=== PATIENT | male | born 1945 | race Hispanic/Latino ===

== ENCOUNTER → 2019-07-29 | Outpatient (CLI) | payer OTHER ==
[~2019-07-29] MED LIST: AEC81 PO; ATOR20TA65 PO; ERGO500014 PO; GLIM2TAB30 PO; LISI-617 PO; MECL-183 PO; PIOG15TA66 PO; REGADENOSON 0.4 MG/5 ML PF SYG IVP SCH; ROPI0.257 PO; TAMS-1 PO
== END | disposition home or self-care (01) ==
LOC: RAH 08:33
PROVIDERS: ATTEND Internal Medicine Cardiovascular Disease
DX: R94.39 Abnormal result of other cardiovascular function study (principal); I10 Essential (primary) hypertension; E11.9 Type 2 diabetes mellitus without complications; I25.9 Chronic ischemic heart disease, unspecified; R06.02 Shortness of breath; E78.5 Hyperlipidemia, unspecified; Z95.5 Presence of coronary angioplasty implant and graft
CPT/HCPCS: 78452; 93017; 96374; A9500 ×2; J2785

== ENCOUNTER → 2020-04-07 | Outpatient (CLI) | payer OTHER ==
[~2020-04-07] MED LIST changes: -MECL-183 PO; +MECL-184 PO; -REGADENOSON 0.4 MG/5 ML PF SYG IVP SCH
== END | disposition home or self-care (01) ==
LOC: SHCH 15:50
PROVIDERS: ATTEND Internal Medicine Cardiovascular Disease
DX: M79.606 Pain in leg, unspecified (principal)
CPT/HCPCS: 93922

== ENCOUNTER 2020-09-16 16:34 | Emergency (ER) | payer MEDICARE, OTHER ==
[~2020-09-16 16:34] MED LIST changes: -LISI-617 PO; +LISI-809 PO; -MECL-184 PO; +MECL-226 PO
== END 2020-09-16 19:56 | disposition home or self-care (01) ==
LOC: EDH 16:34
DX: T14.8XXA Other injury of unspecified body region, initial encounter (principal); M54.6 Pain in thoracic spine; E11.9 Type 2 diabetes mellitus without complications; I10 Essential (primary) hypertension; X58.XXXA Exposure to other specified factors, initial encounter; Y93.89 Activity, other specified; Y92.89 Other specified places as the place of occurrence of the external cause; Y99.8 Other external cause status
CPT/HCPCS: 74176

== ENCOUNTER 2022-08-26 16:23 | Emergency (ER) | payer MEDICARE ==
[~2022-08-26] VITALS: Ht 165.1 cm; Wt 68.0 kg
[~2022-08-26 16:23] MED LIST changes: -ERGO500014 PO; +ERGO500093 PO; -LISI-809 PO; +LISI5TAB21 PO
[2022-08-26 16:56] LABS: BASOPHILS % (AUTO) 0.4 % (0.0-5.0); EOSINOPHILS % (AUTO) 2.3 % (0.0-8.0); HEMATOCRIT 37.5 % (42-54); LYMPHOCYTES % (AUTO) 13.9 % (21.0-51.0); MEAN CORPUSCULAR HEMOGLOBIN 31.2 pg (27.0-33.0); MEAN CORPUSCULAR HGB CONC 33.9 g/dL (32.0-36.0); MEAN CORPUSCULAR VOLUME 92.1 fL (79-99); NEUTROPHILS % (AUTO) 75.1 % (40.0-77.0); PLATELET COUNT (AUTO) 172 K/uL (130-400); RED BLOOD CELL COUNT(AUTO) 4.07 MIL/uL (4.50-6.20); RED CELL DISTRIBUTION WIDTH 14.1 % (11.0-15.5); WHITE BLOOD COUNT (AUTO) 7.1 K/uL (4.8-10.8)
[2022-08-26 17:03] LABS: CREATININE 1.3 mg/dL (0.5-1.5); POTASSIUM 4.4 mmol/L (3.5-5.1)
[2022-08-26 17:12] LABS: TOTAL PROTEIN, SERUM 7.7 g/dL (6.0-8.3)
[2022-08-26 18:46] VITALS: BP 131/56
[2022-08-26 20:27] LABS: APPEARANCE,URINE CLOUDY (CLEAR); BILIRUBIN,URINE NEGATIVE (NEGATIVE); COLOR,URINE LIGHT-YELLOW (YELLOW); GLUCOSE, URINE (UA) NEGATIVE (NEGATIVE); KETONES,URINE NEGATIVE (NEGATIVE); LEUKOCYTE ESTERASE ,URINE 500 Leu/uL (NEGATIVE); NITRATE,URINE NEGATIVE (NEGATIVE); PH,URINE 5.5 (5.0-8.0); PROTEIN,URINE 20 mg/dL (NEGATIVE); UROBILINOGEN,URINE 0.2 mg/dL (0.2-1.0)
[2022-08-26 20:39] LABS: BACTERIA,URINE RARE /HPF (None Seen); MUCUS,URINE RARE LPF (None Seen); SQUAMOUS EPITHELIAL CELL,UR RARE /HPF (0-2); WBC,URINE TNTC /HPF (0-1)
[2022-08-26] MEDS ORDERED: SULF1TAB42 PO (20:57)
== END 2022-08-26 21:00 | disposition home or self-care (01) ==
LOC: EDH 16:23
DX: N39.0 Urinary tract infection, site not specified (principal); I10 Essential (primary) hypertension; E11.9 Type 2 diabetes mellitus without complications; E78.00 Pure hypercholesterolemia, unspecified; Z79.82 Long term (current) use of aspirin; Z79.84 Long term (current) use of oral hypoglycemic drugs; Z79.899 Other long term (current) drug therapy; Z95.5 Presence of coronary angioplasty implant and graft
CPT/HCPCS: 36415; 80053; 81001; 83498; 84484; 85025; 87077; 87088; 87186; 93005

== ENCOUNTER → 2022-10-27 | Outpatient (CLI) | payer MEDICARE ==
[~2022-10-27] VITALS: Ht 165.1 cm; Wt 62.1 kg
[~2022-10-27] MED LIST changes: +MEMA10TA55 PO; +OXYB10TA30 PO; +ROSU10TA28 PO; +SULF1TAB42 PO
[2022-10-27 10:12] LABS: BASOPHILS % (AUTO) 0.3 % (0.0-5.0); EOSINOPHILS % (AUTO) 2.9 % (0.0-8.0); HEMATOCRIT 36.6 % (42-54); LYMPHOCYTES % (AUTO) 20.8 % (21.0-51.0); MEAN CORPUSCULAR HEMOGLOBIN 30.8 pg (27.0-33.0); MEAN CORPUSCULAR HGB CONC 33.1 g/dL (32.0-36.0); MEAN CORPUSCULAR VOLUME 93.1 fL (79-99); MONOCYTES % (AUTO) 7.6 % (3.0-13.0); NEUTROPHILS % (AUTO) 67.9 % (40.0-77.0); PLATELET COUNT (AUTO) 172 K/uL (130-400); RED BLOOD CELL COUNT(AUTO) 3.93 MIL/uL (4.50-6.20); RED CELL DISTRIBUTION WIDTH 13.8 % (11.0-15.5); WHITE BLOOD COUNT (AUTO) 5.8 K/uL (4.8-10.8)
[2022-10-27 10:27] LABS: CREATININE 1.3 mg/dL (0.5-1.5); INR 1.05 (0.85-1.15); POTASSIUM 5.5 mmol/L (3.5-5.1); PROTHROMBIN TIME 11.4 SEC (9.6-11.6)
[2022-10-27 10:28] VITALS: BP 145/76
== END | disposition home or self-care (01) ==
LOC: DAH 10:00 → EDSTATUS 11-23 08:00
PROVIDERS: ATTEND Urology
DX: U07.1 COVID-19 (principal); Z01.818 Encounter for other preprocedural examination; N40.1 Benign prostatic hyperplasia with lower urinary tract symptoms; I21.09 ST elevation (STEMI) myocardial infarction involving other coronary artery of anterior wall; I70.0 Atherosclerosis of aorta; I51.7 Cardiomegaly; R00.1 Bradycardia, unspecified; M47.815 Spondylosis without myelopathy or radiculopathy, thoracolumbar region
CPT/HCPCS: 71045; 87426; 80048; 85025; 85610; 85730; 87088; 36415; 93005; A6260

== ENCOUNTER → 2022-11-21 | Outpatient (CLI) | payer MEDICARE ==
[~2022-11-21] MED LIST changes: -AEC81 PO; -ATOR20TA65 PO; -ERGO500093 PO; -GLIM2TAB30 PO; -LISI5TAB21 PO; -MECL-226 PO; -ROPI0.257 PO; -SULF1TAB42 PO
[2022-11-21 12:47] LABS: BASOPHILS # (AUTO) 0.04 K/uL (0.00-0.20); BASOPHILS % (AUTO) 0.6 % (0.0-5.0); EOSINOPHILS # (AUTO) 0.21 K/uL (0.00-0.70); EOSINOPHILS % (AUTO) 3.3 % (0.0-8.0); HEMATOCRIT 37.1 % (42-54); IMMATURE GRANULOCYTE ABSOLUTE 0.03 K/uL (0-1); LYMPHOCYTES # (AUTO) 1.3 K/uL (1.0-4.8); LYMPHOCYTES % (AUTO) 20.2 % (21.0-51.0); MEAN CORPUSCULAR HEMOGLOBIN 31.1 pg (27.0-33.0); MEAN CORPUSCULAR HGB CONC 33.4 g/dL (32.0-36.0); MONOCYTES # (AUTO) 0.5 K/uL (0.1-1.0); MONOCYTES % (AUTO) 7.3 % (3.0-13.0); NEUTROPHILS # (AUTO) 4.4 K/uL (1.8-7.7); NEUTROPHILS % (AUTO) 68.1 % (40.0-77.0); PLATELET COUNT (AUTO) 185 K/uL (130-400); RED BLOOD CELL COUNT(AUTO) 3.99 MIL/uL (4.50-6.20); RED CELL DISTRIBUTION WIDTH 14.3 % (11.0-15.5); WHITE BLOOD COUNT (AUTO) 6.4 K/uL (4.8-10.8)
[2022-11-21 13:05] LABS: ALBUMIN 3.7 g/dL (3.5-5.0); BILIRUBIN,TOTAL 0.4 mg/dL (0.2-1.0); CREATININE 1.2 mg/dL (0.5-1.5); POTASSIUM 4.8 mmol/L (3.5-5.1)
== END | disposition home or self-care (01) ==
LOC: LAB 08:22
PROVIDERS: ATTEND Internal Medicine Cardiovascular Disease
DX: I10 Essential (primary) hypertension (principal); E78.00 Pure hypercholesterolemia, unspecified
CPT/HCPCS: 36415; 80053; 80061; 85025; 87426

== ENCOUNTER 2022-11-23 06:24 | Day surgery (SDC) | payer MEDICARE ==
[2022-11-17 11:33] LABS: BASOPHILS % (AUTO) 0.5 % (0.0-5.0); EOSINOPHILS % (AUTO) 2.8 % (0.0-8.0); HEMATOCRIT 36.4 % (42-54); LYMPHOCYTES % (AUTO) 20.8 % (21.0-51.0); MEAN CORPUSCULAR HEMOGLOBIN 31.3 pg (27.0-33.0); MEAN CORPUSCULAR HGB CONC 33.8 g/dL (32.0-36.0); MEAN CORPUSCULAR VOLUME 92.6 fL (79-99); MONOCYTES % (AUTO) 7.1 % (3.0-13.0); NEUTROPHILS % (AUTO) 68.3 % (40.0-77.0); PLATELET COUNT (AUTO) 179 K/uL (130-400); RED BLOOD CELL COUNT(AUTO) 3.93 MIL/uL (4.50-6.20); WHITE BLOOD COUNT (AUTO) 6.2 K/uL (4.8-10.8)
[2022-11-17 11:43] LABS: APPEARANCE,URINE CLEAR (CLEAR); BILIRUBIN,URINE NEGATIVE (NEGATIVE); COLOR,URINE YELLOW (YELLOW); GLUCOSE, URINE (UA) NEGATIVE (NEGATIVE); KETONES,URINE NEGATIVE (NEGATIVE); LEUKOCYTE ESTERASE ,URINE NEGATIVE Leu/uL (NEGATIVE); NITRATE,URINE NEGATIVE (NEGATIVE); OCCULT BLOOD,URINE NEGATIVE (NEGATIVE); PH,URINE 5.5 (5.0-8.0); PROTEIN,URINE 30 mg/dL (NEGATIVE); UROBILINOGEN,URINE 0.2 mg/dL (0.2-1.0)
[2022-11-17 11:49] LABS: CREATININE 1.3 mg/dL (0.5-1.5); POTASSIUM 5.3 mmol/L (3.5-5.1)
[2022-11-17 11:52] LABS: PROTHROMBIN TIME 11.6 SEC (9.6-11.6)
[2022-11-17 11:53] LABS: PARTIAL THROMBOPLASTIN TIME 27.4 SEC (26.3-35.5)
[2022-11-17 12:38] LABS: MUCUS,URINE RARE LPF (None Seen); OTHER CASTS, URINE 3 /LPF (None Seen); SQUAMOUS EPITHELIAL CELL,UR RARE /HPF (0-2)
[2022-11-17 20:43] VITALS: BP 111/51; PULSE 48
[~2022-11-23] VITALS: Ht 165.1 cm; Wt 62.1 kg
[2022-11-23] VITALS (18 sets, daily range): BP systolic 138–182; BP diastolic 54–83; PULSE 38–60; RESP 13–19
[~2022-11-23 06:24] MED LIST changes: -PIOG15TA66 PO
[2022-11-23] MEDS ORDERED: GENTAMICIN 80 MG/NS 100 ML PB 100 ML IV ONE (09:11)
[2022-11-23] MEDS ORDERED: CEFTRIAXONE 1G VIAL ONE (09:11)
[2022-11-23] MEDS ORDERED: 0.9%NACL 1000ML 1,000 ML IV ONE (09:11)
[2022-11-23] MEDS ORDERED: GLYCOPYRROLATE 0.2 MG/ML 5 ML VIAL ONE ×2 (09:44→13:17)
[2022-11-23] MEDS ORDERED: MIDAZOLAM HCL 1 MG/ML 2ML VIAL ONE (10:16)
[2022-11-23] MEDS ORDERED: ONDANSETRON 4MG INJ ONE (10:16)
[2022-11-23] MEDS ORDERED: FENTANYL CITRATE PF 50 MCG/1 ML 2ML VIAL ONE ×2 (10:17→11:40)
[2022-11-23] MEDS ORDERED: PROPOFOL 10 MG/ML 20ML VIAL IV ONE (10:17)
[2022-11-23] MEDS ORDERED: NEOSTIGMINE 5MG/5ML SYR IV ONE (11:38)
[2022-11-23] MEDS ORDERED: PIOG15TA66 PO (11:46)
[2022-11-23] MEDS ORDERED: SUGAMMADEX SODIUM 200 MG/2 ML VIAL IV ONE (11:48)
[2022-11-23] MEDS ORDERED: MEPERIDINE-PF 25 MG/ML SYG ONE (12:28)
[2022-11-23] MEDS ORDERED: BACITRACIN 1 EACH PACKET TP ONE (13:31)
[2022-11-23] MEDS ORDERED: HYDROCODONE/ACETAMINOPHEN 5/325 MG TAB ONE (13:47)
== END 2022-11-23 13:50 | disposition home or self-care (01) ==
LOC: DAH 06:24
PROVIDERS: ATTEND Urology
DX: N40.1 Benign prostatic hyperplasia with lower urinary tract symptoms (principal); Z20.822 Contact with and (suspected) exposure to COVID-19; N32.89 Other specified disorders of bladder; I10 Essential (primary) hypertension; E11.59 Type 2 diabetes mellitus with other circulatory complications; G30.9 Alzheimer's disease, unspecified; E78.2 Mixed hyperlipidemia; F02.80 Dementia in other diseases classified elsewhere, unspecified severity, without behavioral disturbance, psychotic disturbance, mood disturbance, and anxiety; K21.9 Gastro-esophageal reflux disease without esophagitis; Z79.01 Long term (current) use of anticoagulants; Z79.899 Other long term (current) drug therapy; Z95.5 Presence of coronary angioplasty implant and graft; Z90.49 Acquired absence of other specified parts of digestive tract; Z98.890 Other specified postprocedural states; Z72.89 Other problems related to lifestyle
CPT/HCPCS: 80048; 85025; 85610; 85730; 87088; 87426; 81001; 36415; 71045; 93005; 52648; 82948; A6260; A4663; J7120; A4354; J3010 ×2; J2710; J7030; J0696; J2250; J2704; J2405; J3490 ×2; J2175; J1580; A4358 ×2; A4930; A4215; A4223; A4335; A4222; A4221; A4600; A5113

== ENCOUNTER 2022-12-01 20:10 | Emergency (ER) | payer MEDICARE ==
[~2022-12-01] VITALS: Ht 165.1 cm; Wt 60.8 kg
[~2022-12-01 20:10] MED LIST changes: +PIOG15TA66 PO; -ROSU10TA28 PO
[2022-12-01 21:53] VITALS: BP 126/56; PULSE 51; RESP 18; O2SAT 99
== END 2022-12-01 22:01 | disposition home or self-care (01) ==
LOC: EDH 20:10
DX: T83.018A Breakdown (mechanical) of other urinary catheter, initial encounter (principal); E11.9 Type 2 diabetes mellitus without complications; E78.00 Pure hypercholesterolemia, unspecified; I10 Essential (primary) hypertension; Z79.84 Long term (current) use of oral hypoglycemic drugs; Z95.5 Presence of coronary angioplasty implant and graft; Y65.8 Other specified misadventures during surgical and medical care; Y92.89 Other specified places as the place of occurrence of the external cause
CPT/HCPCS: 51701; 99281

== ENCOUNTER 2023-01-02 12:38 | Observation (INO) | payer MEDICARE ==
[~2023-01-02] VITALS: Ht 165.1 cm; Wt 62.6 kg
[2023-01-02 16:04] LABS: BASOPHILS # (AUTO) 0.05 K/uL (0.00-0.20); BASOPHILS % (AUTO) 0.6 % (0.0-5.0); EOSINOPHILS # (AUTO) 0.24 K/uL (0.00-0.70); EOSINOPHILS % (AUTO) 3.1 % (0.0-8.0); HEMATOCRIT 36.6 % (42-54); IMMATURE GRANULOCYTE ABSOLUTE 0.06 K/uL (0-1); LYMPHOCYTES # (AUTO) 1.5 K/uL (1.0-4.8); LYMPHOCYTES % (AUTO) 19.4 % (21.0-51.0); MEAN CORPUSCULAR HEMOGLOBIN 30.8 pg (27.0-33.0); MEAN CORPUSCULAR HGB CONC 33.9 g/dL (32.0-36.0); MEAN CORPUSCULAR VOLUME 90.8 fL (79-99); MONOCYTES # (AUTO) 0.6 K/uL (0.1-1.0); MONOCYTES % (AUTO) 7.1 % (3.0-13.0); NEUTROPHILS # (AUTO) 5.3 K/uL (1.8-7.7); PLATELET COUNT (AUTO) 227 K/uL (130-400); RED BLOOD CELL COUNT(AUTO) 4.03 MIL/uL (4.50-6.20); RED CELL DISTRIBUTION WIDTH 14.1 % (11.0-15.5); WHITE BLOOD COUNT (AUTO) 7.7 K/uL (4.8-10.8)
[2023-01-02 16:12] LABS: CREATININE 1.5 mg/dL (0.5-1.5); POTASSIUM 4.4 mmol/L (3.5-5.1)
[2023-01-02 16:17] LABS: ALBUMIN 3.8 g/dL (3.5-5.0); BILIRUBIN,TOTAL 0.4 mg/dL (0.2-1.0); TOTAL PROTEIN, SERUM 7.7 g/dL (6.0-8.3)
[2023-01-02] MEDS ORDERED: KETOROLAC 15MG/ML VIAL (15MG/ML) IV ONE (18:30)
[2023-01-02 19:47] LABS: APPEARANCE,URINE CLOUDY (CLEAR); BILIRUBIN,URINE NEGATIVE (NEGATIVE); COLOR,URINE YELLOW (YELLOW); GLUCOSE, URINE (UA) NEGATIVE (NEGATIVE); KETONES,URINE NEGATIVE (NEGATIVE); LEUKOCYTE ESTERASE ,URINE 500 Leu/uL (NEGATIVE); NITRATE,URINE NEGATIVE (NEGATIVE); OCCULT BLOOD,URINE MODERATE (NEGATIVE); PROTEIN,URINE 70 mg/dL (NEGATIVE); UROBILINOGEN,URINE 0.2 mg/dL (0.2-1.0)
[2023-01-02 20:16] LABS: ADD UA MICROSCOPIC YES
[2023-01-02 20:31] LABS: BACTERIA,URINE RARE /HPF (None Seen); MUCUS,URINE RARE LPF (None Seen); SQUAMOUS EPITHELIAL CELL,UR RARE /HPF (0-2); WBC,URINE TNTC /HPF (0-1)
[2023-01-02] MEDS ORDERED: ACETAMINOPHEN 650 MG SUPPOSITORY RC PRN (21:00)
[2023-01-02] MEDS ORDERED: ACETAMINOPHEN 325 MG TAB PO PRN (21:00)
[2023-01-02] MEDS: INSULIN HUMULIN R 100 UNIT/ML 3ML SQ SCH (21:00)
[2023-01-02] MEDS: DOCUSATE SODIUM 100 MG CAP PO SCH (21:49)
[2023-01-02] MEDS: 0.9%NACL 1000ML 1,000 ML IV SCH (21:49)
[2023-01-02] MEDS: LACTULOSE 20 GM/30 ML UDCUP PO SCH (21:49)
[2023-01-03] MEDS: LACTULOSE 20 GM/30 ML UDCUP PO SCH ×2 (03:20→08:34)
[2023-01-03 06:24] LABS: CREATININE 1.5 mg/dL (0.5-1.5); MAGNESIUM 1.8 mg/dL (1.80-2.40); PHOSPHORUS 3.7 mg/dL (2.5-4.9); POTASSIUM 4.6 mmol/L (3.5-5.1)
[2023-01-03 06:48] VITALS: BP 174/77; PULSE 50; RESP 17; O2SAT 99
[2023-01-03] MEDS: INSULIN HUMULIN R 100 UNIT/ML 3ML SQ SCH ×2 (07:30→11:30)
[2023-01-03] MEDS: 0.9%NACL 1000ML 1,000 ML IV SCH (08:03)
[2023-01-03] MEDS: DOCUSATE SODIUM 100 MG CAP PO SCH (08:34)
[2023-01-03] MEDS ORDERED: ENOXAPARIN SODIUM 30 MG/0.3 ML SQ SCH (09:00)
[2023-01-03] MEDS ORDERED: OXYBUTYNIN 5 MG TAB.SR.24H PO SCH (09:00)
[2023-01-03] MEDS ORDERED: POLYETHYLENE GLYCOL 3350 17 GM POWD.PACK PO SCH (09:00)
[2023-01-03] MEDS ORDERED: MEMANTINE HCL PO SCH (09:00)
[2023-01-03] MEDS ORDERED: OXYBUTYNIN CHLORIDE PO SCH (09:00)
[2023-01-03] MEDS ORDERED: PANTOPRAZOLE 40 MG TAB DR PO SCH (09:00)
[2023-01-03] MEDS ORDERED: PIOGLITAZONE 15MG TAB PO SCH (09:00)
[2023-01-03] MEDS ORDERED: TAMSULOSIN HCL 0.4 MG CAP.ER.24H PO SCH (09:00)
[2023-01-03] MEDS ORDERED: CEFTRIAXONE 1G VIAL IV SCH (09:00)
[2023-01-03] MEDS ORDERED: MEMANTINE HCL 5 MG TABLET PO SCH (09:00)
[2023-01-03] MEDS ORDERED: AMOX-426 PO (13:41)
[2023-01-03] MEDS ORDERED: POLY17PO4 PO (13:41)
== END 2023-01-03 14:11 | disposition home or self-care (01) ==
LOC: EDH 12:38 → EDHIP 20:45
PROVIDERS: ADMIT Internal Medicine Critical Care Medicine; ATTEND Internal Medicine Critical Care Medicine
DX: K59.00 Constipation, unspecified (principal); N30.00 Acute cystitis without hematuria; D64.9 Anemia, unspecified; N17.9 Acute kidney failure, unspecified; E87.8 Other disorders of electrolyte and fluid balance, not elsewhere classified; I10 Essential (primary) hypertension; E11.9 Type 2 diabetes mellitus without complications; E78.00 Pure hypercholesterolemia, unspecified; N40.0 Benign prostatic hyperplasia without lower urinary tract symptoms; Z90.79 Acquired absence of other genital organ(s); Z95.5 Presence of coronary angioplasty implant and graft; Z95.1 Presence of aortocoronary bypass graft; Z79.899 Other long term (current) drug therapy; Z98.890 Other specified postprocedural states
CPT/HCPCS: 96361 ×2; 96375; 99285; 80053; 83690; 85025; 87088; 82948; 81001; 36415 ×2; 74021; 71045; 93005; 96372; 96365; 83735; 84100; 80048; 74018; G0378 ×17; J7030; J1885; J1650; J0696

== ENCOUNTER 2023-06-27 21:14 | Observation (INO) | payer MEDICARE ==
[~2023-06-27] VITALS: Ht 165.1 cm; Wt 62.8 kg
[2023-06-27 21:45] LABS: BASOPHILS # (AUTO) 0.03 K/uL (0.00-0.20); BASOPHILS % (AUTO) 0.5 % (0.0-5.0); EOSINOPHILS # (AUTO) 0.28 K/uL (0.00-0.70); EOSINOPHILS % (AUTO) 4.3 % (0.0-8.0); HEMATOCRIT 38.2 % (42-54); IMMATURE GRANULOCYTE ABSOLUTE 0.06 K/uL (0-1); LYMPHOCYTES # (AUTO) 1.6 K/uL (1.0-4.8); LYMPHOCYTES % (AUTO) 25.5 % (21.0-51.0); MEAN CORPUSCULAR HEMOGLOBIN 30.6 pg (27.0-33.0); MEAN CORPUSCULAR HGB CONC 34.8 g/dL (32.0-36.0); MONOCYTES # (AUTO) 0.6 K/uL (0.1-1.0); MONOCYTES % (AUTO) 8.9 % (3.0-13.0); NEUTROPHILS # (AUTO) 3.9 K/uL (1.8-7.7); NEUTROPHILS % (AUTO) 59.9 % (40.0-77.0); PLATELET COUNT (AUTO) 190 K/uL (130-400); RED BLOOD CELL COUNT(AUTO) 4.34 MIL/uL (4.50-6.20); RED CELL DISTRIBUTION WIDTH 13.8 % (11.0-15.5); WHITE BLOOD COUNT (AUTO) 6.4 K/uL (4.8-10.8)
[2023-06-27 21:55] LABS: CREATININE 1.5 mg/dL (0.5-1.5); POTASSIUM 3.9 mmol/L (3.5-5.1)
[2023-06-27 21:57] LABS: INR 0.94 (0.85-1.15); PROTHROMBIN TIME 10.9 SEC (9.6-11.6)
[2023-06-27 22:00] LABS: ALBUMIN 3.7 g/dL (3.5-5.0); BILIRUBIN,TOTAL 0.3 mg/dL (0.2-1.0); TOTAL PROTEIN, SERUM 7.2 g/dL (6.0-8.3)
[2023-06-27] MEDS ORDERED: NITROGLYCERIN 0.4 MG SL TAB SL PRN (22:00)
[2023-06-27 23:02] LABS: APPEARANCE,URINE CLEAR (CLEAR); BILIRUBIN,URINE NEGATIVE (NEGATIVE); COLOR,URINE LIGHT-YELLOW (YELLOW); GLUCOSE, URINE (UA) TRACE mg/dL (NEGATIVE); KETONES,URINE NEGATIVE (NEGATIVE); LEUKOCYTE ESTERASE ,URINE NEGATIVE Leu/uL (NEGATIVE); NITRATE,URINE NEGATIVE (NEGATIVE); OCCULT BLOOD,URINE NEGATIVE (NEGATIVE); PH,URINE 5.5 (5.0-8.0); PROTEIN,URINE 70 mg/dL (NEGATIVE); UROBILINOGEN,URINE 0.2 mg/dL (0.2-1.0)
[2023-06-27] MEDS: ASPIRIN 81MG CHEW TAB PO ONE (23:08)
[2023-06-27 23:11] LABS: ADD UA MICROSCOPIC YES
[2023-06-27 23:21] LABS: MUCUS,URINE RARE LPF (None Seen); RBC,URINE 0-1 /HPF (0-1); SQUAMOUS EPITHELIAL CELL,UR RARE /HPF (0-2)
[2023-06-28] MEDS ORDERED: HYDRALAZINE 20MG/ML VIAL IV PRN (02:00)
[2023-06-28] MEDS ORDERED: ALBUTEROL 0.083% 2.5 MG/3 ML INH IH PRN (02:00)
[2023-06-28] MEDS ORDERED: IPRATROPIUM 0.5 MG/2.5 ML INH IH PRN (02:00)
[2023-06-28] MEDS ORDERED: ACETAMINOPHEN 650 MG SUPPOSITORY RC PRN (02:00)
[2023-06-28] MEDS ORDERED: TEMAZEPAM 15 MG CAPSULE PO PRN (02:00)
[2023-06-28] MEDS ORDERED: LACTULOSE 20 GM/30 ML UDCUP PO PRN (02:00)
[2023-06-28] MEDS ORDERED: DOCUSATE SODIUM 100 MG CAP PO PRN (02:00)
[2023-06-28] MEDS ORDERED: ACETAMINOPHEN 325 MG TAB PO PRN (02:00)
[2023-06-28] MEDS ORDERED: ONDANSETRON 4MG INJ IVP PRN (02:00)
[2023-06-28 02:25] VITALS: PULSE 51; RESP 18; O2SAT 98
[2023-06-28 02:28] LABS: BASOPHILS # (AUTO) 0.05 K/uL (0.00-0.20); BASOPHILS % (AUTO) 0.8 % (0.0-5.0); EOSINOPHILS # (AUTO) 0.27 K/uL (0.00-0.70); EOSINOPHILS % (AUTO) 4.1 % (0.0-8.0); HEMATOCRIT 35.9 % (42-54); IMMATURE GRANULOCYTE ABSOLUTE 0.06 K/uL (0-1); LYMPHOCYTES # (AUTO) 1.7 K/uL (1.0-4.8); LYMPHOCYTES % (AUTO) 26.1 % (21.0-51.0); MEAN CORPUSCULAR HEMOGLOBIN 30.9 pg (27.0-33.0); MEAN CORPUSCULAR HGB CONC 34.8 g/dL (32.0-36.0); MEAN CORPUSCULAR VOLUME 88.9 fL (79-99); MONOCYTES # (AUTO) 0.5 K/uL (0.1-1.0); MONOCYTES % (AUTO) 7.2 % (3.0-13.0); NEUTROPHILS % (AUTO) 60.9 % (40.0-77.0); PLATELET COUNT (AUTO) 165 K/uL (130-400); RED BLOOD CELL COUNT(AUTO) 4.04 MIL/uL (4.50-6.20); WHITE BLOOD COUNT (AUTO) 6.5 K/uL (4.8-10.8)
[2023-06-28 02:35] LABS: ABG BASE EXCESS -3.1 mmol/L (-2.0-3.0); ABG HCO3 19.8 mmol/L (21.0-28.0); ABG OXYGEN SATURATION 97.9 % (95.0-99.0); ABG PCO2 30 mmHg (35-48); ABG PH 7.434 (7.35-7.450); PO2, ARTERIAL BG 101.4 mmHg (83.0-108.0); VENT MODE, BG ROOMAIR (ROOM AIR)
[2023-06-28 02:40] VITALS: BP 163/72; PULSE 57; RESP 17; O2SAT 98
[2023-06-28 02:55] LABS: CREATININE 1.3 mg/dL (0.5-1.5); POTASSIUM 4.1 mmol/L (3.5-5.1)
[2023-06-28 07:50] VITALS: BP 148/73; PULSE 52; RESP 17
[2023-06-28 08:00] VITALS: O2SAT 99
[2023-06-28] MEDS: ASPIRIN 81MG CHEW TAB PO SCH (09:36)
[2023-06-28 11:24] VITALS: BP 115/54; PULSE 60; RESP 18
[2023-06-28 15:23] VITALS: BP 139/70; PULSE 61; RESP 16
[2023-06-28] MEDS ORDERED: PANT40TA55 PO (15:25)
[2023-06-28] MEDS ORDERED: ATORVASTATIN 40 MG TABLET PO SCH (21:00)
== END 2023-06-28 17:15 | disposition home or self-care (01) ==
LOC: EDH 21:14 → EDHIP 06-28 01:42 → 3BH 06-28 02:19
PROVIDERS: ADMIT Internal Medicine Critical Care Medicine; ATTEND Internal Medicine Critical Care Medicine
DX: R07.9 Chest pain, unspecified (principal); K21.9 Gastro-esophageal reflux disease without esophagitis; I10 Essential (primary) hypertension; E78.5 Hyperlipidemia, unspecified; E11.65 Type 2 diabetes mellitus with hyperglycemia; N40.0 Benign prostatic hyperplasia without lower urinary tract symptoms; R06.02 Shortness of breath; E78.00 Pure hypercholesterolemia, unspecified; I25.10 Atherosclerotic heart disease of native coronary artery without angina pectoris; Z90.49 Acquired absence of other specified parts of digestive tract; Z95.5 Presence of coronary angioplasty implant and graft; Z79.82 Long term (current) use of aspirin; Z79.899 Other long term (current) drug therapy; Z90.79 Acquired absence of other genital organ(s)
CPT/HCPCS: 84484 ×4; 80053; 83880; 85025 ×2; 85378 ×2; 85610; 87088; 81001; 36415 ×2; 71045; 93005; 99285; 80048; 82803; 87040 ×2; 82948 ×3; 93306; 36600; G0378 ×14

== ENCOUNTER → 2024-01-22 | Outpatient (CLI) | payer MEDICARE ==
[~2024-01-22] MED LIST changes: +MEMA10TA21 PO; -MEMA10TA55 PO; +PANT40TA55 PO
[2024-01-22 12:40] LABS: ALBUMIN 3.6 g/dL (3.5-5.0); BILIRUBIN,TOTAL 0.6 mg/dL (0.2-1.0); CREATININE 1.3 mg/dL (0.5-1.3); POTASSIUM 4.2 mmol/L (3.5-5.1); TOTAL PROTEIN, SERUM 6.8 g/dL (6.0-8.3)
== END | disposition home or self-care (01) ==
LOC: LAB 01-21 13:49
PROVIDERS: ATTEND Internal Medicine Cardiovascular Disease
DX: E11.9 Type 2 diabetes mellitus without complications (principal); R07.9 Chest pain, unspecified; I73.9 Peripheral vascular disease, unspecified
CPT/HCPCS: 36415; 80053; 80061

== ENCOUNTER 2024-04-19 17:45 | Emergency (ER) | payer MEDICARE ==
[~2024-04-19] VITALS: Ht 165.1 cm; Wt 67.6 kg
--- NOTE | 2024-04-19 18:13 | HMCIMG ---
CT HEAD/BRAIN W/O CONTRAST INDICATION: headache TECHNIQUE: CT HEAD/BRAIN W/O CONTRAST. CT was performed with one or more of the following dose reduction techniques: Automated exposure control, adjustment of the mA and/or kV according to the patient's size, or use of the iterative reconstruction technique. Comparison: 01/17/2024 FINDINGS: Cerebral atrophy seen. Nonspecific periventricular and subcortical white matters changes are noted likely representing small vessel ischemic changes. No midline shift or herniation. No extra axial collection. No acute intracranial bleed. The visualized paranasal sinuses and mastoid air cells are normally aerated. IMPRESSION: Diffuse atrophy. No acute intracranial bleed is seen. Nonspecific white matter changes
[2024-04-19 18:20] LABS: BASOPHILS # (AUTO) 0.03 K/uL (0.00-0.20); BASOPHILS % (AUTO) 0.4 % (0.0-5.0); EOSINOPHILS # (AUTO) 0.06 K/uL (0.00-0.70); EOSINOPHILS % (AUTO) 0.7 % (0.0-8.0); HEMATOCRIT 37.7 % (42-54); IMMATURE GRANULOCYTE ABSOLUTE 0.05 K/uL (0-1); LYMPHOCYTES % (AUTO) 11.9 % (21.0-51.0); MEAN CORPUSCULAR HEMOGLOBIN 31.3 pg (27.0-33.0); MEAN CORPUSCULAR HGB CONC 34.7 g/dL (32.0-36.0); MEAN CORPUSCULAR VOLUME 90.2 fL (79-99); MONOCYTES # (AUTO) 0.4 K/uL (0.1-1.0); MONOCYTES % (AUTO) 4.9 % (3.0-13.0); NEUTROPHILS # (AUTO) 6.9 K/uL (1.8-7.7); NEUTROPHILS % (AUTO) 81.5 % (40.0-77.0); PLATELET COUNT (AUTO) 174 K/uL (130-400); RED BLOOD CELL COUNT(AUTO) 4.18 MIL/uL (4.50-6.20); RED CELL DISTRIBUTION WIDTH 13.1 % (11.0-15.5); WHITE BLOOD COUNT (AUTO) 8.5 K/uL (4.8-10.8)
--- NOTE | 2024-04-19 18:20 | EKG ---
[facility] Test Date: 2024-04-19 Test Time: 18:18:04 Pat Name: ROBER LANE Department: ED Room: Gender: M Utility Aide: [id number] : 1945 Requested By: MILI GONZALEZ Order Number: [id number] Reading MD: Falguni Garcia Measurements Intervals [place] Rate: 52 P: 34 AR: 184 QRS: 8 QRSD: 95 T: 2 QT: 494 QTc: 458 Interpretive Statements Sinus rhythm Compared to ECG 06/27/2023 21:04:56 No significant changes Electronically Signed On 04-20-2024 08:20:51 MANAGER MANAGEMENT by Falguni Garcia Please click the below link to view image of tracing.
[2024-04-19 18:27] LABS: APPEARANCE,URINE CLEAR (CLEAR); BILIRUBIN,URINE NEGATIVE (NEGATIVE); COLOR,URINE YELLOW (YELLOW); GLUCOSE, URINE (UA) >=1000 mg/dL (NEGATIVE); KETONES,URINE 10 mg/dL (NEGATIVE); LEUKOCYTE ESTERASE ,URINE NEGATIVE Leu/uL (NEGATIVE); NITRATE,URINE NEGATIVE (NEGATIVE); PH,URINE 7.5 (5.0-8.0); PROTEIN,URINE 100 mg/dL (NEGATIVE); UROBILINOGEN,URINE 0.2 mg/dL (0.2-1.0)
[2024-04-19 18:28] LABS: ADD UA MICROSCOPIC YES; RBC,URINE 0-1 /HPF (0-1); SQUAMOUS EPITHELIAL CELL,UR RARE /HPF (0-2)
[2024-04-19 18:32] LABS: CREATININE 1.1 mg/dL (0.5-1.3); POTASSIUM 4.9 mmol/L (3.5-5.1)
[2024-04-19 18:44] VITALS: TEMP 97.5
--- NOTE | 2024-04-19 18:54 | ERN ---
General Chief Complaint: Headache Stated Complaint: HEADACHE Time Seen by MD: 17:53 History of Present Illness Initial Comments 78-year-old male presents for frontal headache and hypertension. Patient went to bed last night in his normal state of health. Patient reports that he woke up this morning with a bilateral frontal headache that is moderate in nature. It is throbbing. He denies any neck stiffness, vision changes, focal neurologic deficits, falls or trauma, chest pain or shortness of breath. Family reports that they took his blood pressure at home, and it was 180 systolic, which was concerning. Patient denies history of headaches. Medical conditions: Dementia, hypertension Of note, patient started a new medicine, donepezil, yesterday. Also, the patient was taking blood pressure medications but recently stopped after discussion with the PCP. Allergies: Coded Allergies: No Known Allergies (Unverified Allergy, 11/14/11) Home Meds Active Scripts Oxycodone HCl/Acetaminophen (Percocet 5-325 mg Tablet) 5 Mg-325 Mg Tablet, 1 EACH PO Q6H for pain, #16 TAB 0 Refills Prov:IVETT TRAVIS MD 04/19/24 Pantoprazole Sodium (Protonix) 40 Mg Ectab, 40 MG PO DAILY, #30 TAB.EC Prov:POLI ACOSTA 06/28/23 Reported Medications Pioglitazone HCl (Pioglitazone HCl) 15 Mg Tablet, 15 MG PO DAILY, TAB 11/23/22 Oxybutynin Chloride (Oxybutynin Chloride ER) 10 Mg Tab.er.24, 1 TAB PO DAILY 10/27/22 Memantine HCl (Memantine HCl) 10 Mg Tablet, 1 TAB PO BID 10/27/22 Tamsulosin HCl (Flomax) 0.4 Mg Cap.er.24h, 0.4 MG PO DAILY, CAPSULE. 05/28/19 Past Medical History Past Medical History: Diabetes-Type II, High Cholesterol, Heart Disease, Hypertension Past Surgical History: Cholecystectomy Surgical History Other: HEART STENT Social History Social History: Negative, Lives with family ROS Dictation CONSTITUTIONAL: No chills, no fever, no weakness, no diaphoresis, no malaise. HEAD/FACE: No signs of trauma. EENT: No eye pain, no blurred vision, no tearing, no double vision, no ear pain, no ear discharge, no nose pain, no nasal congestion, no throat pain, no throat swelling, no mouth pain. RESPIRATORY: No cough, no orthopnea, no SOB, no stridor, no wheezing. CARDIOVASCULAR: No chest pain, no edema, no palpitations, no syncope. GASTROINTESTINAL/ABDOMINAL: No abdominal pain, no constipation, no diarrhea, no nausea, no vomiting. GENITOURINARY: No abnormal discharge, no dysuria, no frequent urination, no hematuria. No complaints of pain in the genitals. MUSCULOSKELETAL: No back pain, no gout, no joint pain, no joint swelling, no muscle pain, no muscle stiffness, no neck pain. INTEGUMENTARY: No change in color, no change in hair/nails, no dryness, no lesion, no lumps, no rash. NEUROLOGICAL/PSYCH: Headache HEMATOLOGIC/LYMPHATIC: Not anemic, no history of blood clots, no apparent bleeding, no bruising, glands not swollen. All Systems Negative, Except as Noted. Physical Exam Physical Exam Dictation VITAL SIGNS: Reviewed. GENERAL APPEARANCE: Alert, oriented x3, no acute distress HEAD AND FACE: Non-traumatic. EYES: PERRL, pink conjunctivas, eyelid no trauma, anterior chamber clear. EARS: Pinnas intact and no signs of trauma or erythema. Ear canals clear and no discharge. TMs no erythema. NOSE: No discharge, no bleeding. OROPHARYNX: Mouth normal, teeth no caries, tongue pink. Pharynx clear, no erythema. Tonsils no exudates, no abscesses noted. Mucous membrane moist. NECK: Supple, non-tender, no thyromegaly, no masses, no JVD, no bruits. BREAST: Deferred. CHEST: No tenderness, no crepitus, no paradoxical movement, no retractions. LUNGS: Clear, well-ventilated, symmetric, no rales, no wheezing, no rhonchi, no stridor, good breath sounds bilaterally. HEART: Regular rate, regular rhythm, no murmur, no gallops. VASCULAR: No peripheral edema. ABDOMEN: Soft, positive bowel sounds, nondistended, no guarding, nontender, no rebound, no masses no hepatomegaly, no splenomegaly, no Foster's sign, no hernias. RECTAL: Deferred. GENITAL: Deferred. NEUROLOGICAL: Normal speech, gross motor function intact, gross sensory function intact. MUSCULOSKELETAL: Neck nontender, full range of motion, back nontender, full range of motion. EXTREMITIES: Nontender, full range of motion. SKIN: Color pink, dry, no turgor, no rash, no lacerations, no abrasions, no contusions. LYMPHATICS: Deferred. Results Laboratory and Microbiology Lab and Micro Result Laboratory Tests Test 04/19/24 17:57 04/19/24 18:13 Urine Color YELLOW (YELLOW) Urine Appearance CLEAR (CLEAR) Urine pH 7.5 (5.0-8.0) Urine Specific [place] 1.021 (1.001-1.031) Urine Protein 100 mg/dL (NEGATIVE) H Urine Glucose (UA) >=1000 mg/dL (NEGATIVE) H Urine Ketones 10 mg/dL (NEGATIVE) H Urine Occult Blood +- (TRACE) (NEGATIVE) H Urine Nitrate NEGATIVE (NEGATIVE) Urine Bilirubin NEGATIVE mg/dL (NEGATIVE) Urine Urobilinogen 0.2 mg/dL (0.2-1.0) Urine Leukocyte Esterase NEGATIVE Ayad/uL Urine RBC 0-1 /HPF (0-1) Urine WBC 2-5 /HPF (0-1) H Urine Squamous Epithelial Cells RARE /HPF (0-2) Urine Bacteria None /HPF (None Seen) White Blood Count 8.5 K/uL (4.8-10.8) Red Blood Count 4.18 MIL/uL (4.50-6.20) L Hemoglobin 13.1 g/dL (14.0-18.0) L Hematocrit 37.7 % (42-54) L Mean Corpuscular Volume 90.2 fL (79-99) Mean Corpuscular Hemoglobin 31.3 pg (27.0-33.0) Mean Corpuscular Hemoglobin Concent 34.7 g/dL (32.0-36.0) Red Cell Distribution Width 13.1 % (11.0-15.5) Platelet Count 174 K/uL (130-400) Mean Platelet Volume 10.2 fL (7.5-10.5) Immature Granulocyte % (Auto) 0.6 % (0-1) Neutrophils (%) (Auto) 81.5 % (40.0-77.0) H Lymphocytes (%) (Auto) 11.9 % (21.0-51.0) L Monocytes (%) (Auto) 4.9 % (3.0-13.0) Eosinophils (%) (Auto) 0.7 % (0.0-8.0) Basophils (%) (Auto) 0.4 % (0.0-5.0) Neutrophils # (Auto) 6.9 K/uL (1.8-7.7) Lymphocytes # (Auto) 1.0 K/uL (1.0-4.8) Monocytes # (Auto) 0.4 K/uL (0.1-1.0) Eosinophils # (Auto) 0.06 K/uL (0.00-0.70) Basophils # (Auto) 0.03 K/uL (0.00-0.20) Absolute Immature Granulocyte (auto 0.05 K/uL (0-1) Nucleated Red Blood Cells 0.0 % (0.0-0.19) Sodium Level 138 mmol/L (136-145) Potassium Level 4.9 mmol/L (3.5-5.1) Chloride Level 104 mmol/L (101-111) Carbon Dioxide Level 28 mmol/L (21-32) Blood Urea Nitrogen 13 mg/dL (7-18) Creatinine 1.1 mg/dL (0.5-1.3) Glomerular Filtration Rate Calc 68 mL/min (>90) Random Glucose 250 mg/dL (70-105) H Total Calcium 9.0 mg/dL (8.5-10.1) Total Creatine Kinase 77 U/L (21-232) # Troponin I High Sensitivity 7.7 ng/L (4-75) MDM MDM: Differential diagnosis: Uncontrolled hypertension, hypertensive urgency, hypertensive emergency Rationale: Tests considered and ordered secondary to shared decision making include: Previous outside records reviewed: Old ER visits. Risk of complication and/or morbidity or mortality of patient management: None Medications-Per medication reconciliation Need for hospitalization: Patient does not meet criteria for hospitalization. Need for emergency major/minor surgery: No There are no social concerns with this patient. Prescription drug management Prescriptions will include symptomatic care Patient's prior external medical records from other ER visits were reviewed by me as indicated. Prior testing and results from previous visits were reviewed. Prior tests were taken into account with medical decision making and resource utilization, independent historian/historians were used to obtain complete medical history. I independently interpreted the test that were performed, results were reviewed by me and considered findings on radiology if ordered. Medical management and examination interpretation discussions were had by me with other qualified healthcare professionals as indicated for the patient's care. ED Course Orders Procedure Category Date Status Time Ct Head/Brain W/O CT 04/19/24 Resulted Contrast 17:54 Cardiac Panel LAB 04/19/24 Complete 17:54 Cbc With Differential LAB 04/19/24 Complete 17:54 Basic Metabolic Panel LAB 04/19/24 Complete 17:54 12 Lead Ekg Tracing- EKG 04/19/24 Complete Technical 17:54 Urinalysis Profile LAB 04/19/24 Complete 18:15 Chest 1vw RAD 04/19/24 Resulted 18:50 0.9%Nacl 1000ml (Ns PHA 04/19/24 Complete 1000ml) 19:00 Ketorolac PHA 04/19/24 Complete Tromethamine 15mg/Ml 19:00 Hydralazine 20mg Inj PHA 04/19/24 Complete (Apresoline 20mg In 19:30 Morphine 2mg Syg PHA 04/19/24 Complete (Morphine 2mg Syg) 21:30 Ondansetron 4mg Inj PHA 04/19/24 Complete (Zofran 4mg Inj) 21:30 Current Medications Medications (Trade) Dose Ordered Sig/Jay Route PRN Reason Start Time Stop Time Status Last Admin Dose Admin Hydralazine HCl (APRESOLine 20MG INJ) 10 mg ONCE ONCE IV 04/19/24 19:30 04/19/24 19:31 DC 04/19/24 19:23 Ketorolac Tromethamine (toRADol) 15 mg ONCE ONCE IV 04/19/24 19:00 04/19/24 19:01 DC 04/19/24 19:15 Morphine Sulfate (morPHINE 2MG SYG) 2 mg ONCE ONCE IVP 04/19/24 21:30 04/19/24 21:31 DC 04/19/24 21:11 Ondansetron HCl (zoFRAN 4MG INJ) 4 mg ONCE ONCE IVP 04/19/24 21:30 04/19/24 21:31 DC 04/19/24 21:11 Sodium Chloride 1,000 ml @ 0 mls/hr ONCE ONCE IV 04/19/24 19:00 04/19/24 19:01 DC 04/19/24 19:14 Vital Signs Date Time Temp Pulse Resp B/P (MAP) Pulse Ox O2 Delivery O2 Flow Rate FiO2 04/19/24 21:13 55 16 144/56 99 Room Air* 0 04/19/24 20:04 57 16 155/56 99 Room Air* 0 04/19/24 19:30 51 16 163/66 98 Room Air* 0 04/19/24 18:44 97.5 50 16 166/73 98 Room Air* 0 04/19/24 17:48 97.2 54 16 173/70 97 Room Air Problem List Problem Lists: (1) Hypertensive urgency (2) Headache (3) 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 DX & DISP Disposition: Discharge Departure Impression: Primary Impression: Hypertensive urgency Additional Impressions: Headache, 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 The patient is now being d ischarged to home and should follow up with the primary care physician or the specialist as directed by the ER staff. Follow-up with primary care provider in 1 to 2 days. Take medications as directed here in the emergency room. Okay to continue home medications unless otherwise discussed during your visit in the emergency room today. Return to your nearest emergency room if symptoms worsen or if there is no improvement. Call 911 if you need immediate assistance. Take Tylenol or Motrin [id number] as needed and if no contraindications are present. Increase oral hydration. A wound culture or urine culture was ordered here in the emergency room department please follow-up with primary care provider and advise them to get repeat ports from our facility. If you had any Cornelio wrap/splints that were applied here, please do not remove them until you see your primary care or specialty. Referrals: RANDY CAMPA DO (PCP) MILI GONZALEZ DO Apr 19, 2024 18:54 IVETT TRAVIS MD Apr 19, 2024 21:56
[2024-04-19] MEDS: 0.9%NACL 1000ML 1,000 ML IV ONE (19:14)
[2024-04-19] MEDS: ketOROlac 15MG/ML VIAL (15MG/ML) IV ONE (19:15)
[2024-04-19] MEDS: hydrALAZine 20MG/ML VIAL IV ONE (19:23)
--- NOTE | 2024-04-19 19:33 | HMCIMG ---
INDICATION: chest pain, cough TECHNIQUE: CHEST 1VW COMPARISON: 07/18/2023 FINDINGS/IMPRESSION: Prominent bilateral interstitial markings which may represent bronchitis or vascular congestion in the proper clinical setting. Cardiac silhouette is within normal limits. Mild degenerative changes of the spine. The visualized upper abdomen appears unremarkable.
[2024-04-19] MEDS: ondanSETRON 4MG INJ IVP ONE (21:11)
[2024-04-19] MEDS: morPHINE 2 MG SYG IVP ONE (21:11)
[2024-04-19 21:13] VITALS: BP 144/56; PULSE 55; RESP 16; O2SAT 99
[2024-04-19] MEDS ORDERED: OXYC-38 PO (21:55)
== END 2024-04-19 22:04 | disposition home or self-care (01) ==
LOC: EEVIPCON 17:45 → EDH 17:45
DX: R51.9 Headache, unspecified (principal); I16.0 Hypertensive urgency; F02.80 Dementia in other diseases classified elsewhere, unspecified severity, without behavioral disturbance, psychotic disturbance, mood disturbance, and anxiety; G30.9 Alzheimer's disease, unspecified; E11.9 Type 2 diabetes mellitus without complications; E78.00 Pure hypercholesterolemia, unspecified; I11.9 Hypertensive heart disease without heart failure; Z79.84 Long term (current) use of oral hypoglycemic drugs; Z79.899 Other long term (current) drug therapy; Z90.49 Acquired absence of other specified parts of digestive tract; Z95.5 Presence of coronary angioplasty implant and graft
CPT/HCPCS: 99285; 96374; 96375; 70450; 71045; 96361; 82550; 84484; 80048; 85025; 81001; 36415; 93005; J2270; J0360; J2405; J1885

== ENCOUNTER → 2024-05-23 | Outpatient (CLI) | payer MEDICARE ==
[~2024-05-23] MED LIST changes: +ASPI-1197 PO; +BENZ-226 PO; +DONE10TA43 PO; +IPRNEB NEB; +LATA2.5D14 OP; +LEVO-70 PO; +LEVO25TA9 PO; +LORA10TA7 PO; +NITR0.4T50 SL; +OSEL75 PO; -OXYB10TA30 PO; -PANT40TA55 PO; +PRAV40TA3 PO; +TIMO5SOL10 OP
[2024-05-23 13:05] LABS: ALBUMIN 3.5 g/dL (3.5-5.0); BILIRUBIN,TOTAL 0.5 mg/dL (0.2-1.0); CREATININE 1.1 mg/dL (0.5-1.3); POTASSIUM 4.2 mmol/L (3.5-5.1); TOTAL PROTEIN, SERUM 6.9 g/dL (6.0-8.3)
== END | disposition home or self-care (01) ==
LOC: LAB 10:20
PROVIDERS: ATTEND Internal Medicine Cardiovascular Disease
DX: E78.2 Mixed hyperlipidemia (principal); Z79.899 Other long term (current) drug therapy
CPT/HCPCS: 36415; 80053; 80061; 82306

== ENCOUNTER 2024-08-31 09:57 | Observation (INO) | payer MEDICARE ==
[~2024-08-31] VITALS: Ht 166.4 cm; Wt 69.4 kg
[~2024-08-31 09:57] MED LIST changes: -TAMS-1 PO; +TAMS-55 PO
--- NOTE | 2024-08-31 10:21 | ERN ---
General Chief Complaint: Chest Pain Stated Complaint: CHEST PAIN Time Seen by MD: 10:03 History of Present Illness Initial Comments 79-year-old male, history of hypertension, dyslipidemia, diabetes, CAD with stent placement two years ago by Dr. Multani, presents for chest pain. According to the family, over the last few weeks patient was had increased fatigue, increased sleeping, weight loss, decreased appetite, and overall is an decreased energy compared to normal. This morning the patient woke up at around 9:00 a.m. and he felt chest pain on the left side of his chest. He was severe when it started. He was at rest. Nonradiating. He reports that the symptoms have improved but he still feels some discomfort in the left side of his chest. He denies any dizziness, vomiting, shortness of breath, abdominal discomfort, or recent swelling. He reports that he did follow up with Dr. Multani about a year ago for what sounds like a stress test which was unremarkable. Allergies: Coded Allergies: No Known Allergies (Unverified Allergy, 11/14/11) Home Meds Active Scripts Ipratropium [place] (Atrovent Neb Soln) 0.2 Mg/Ml (0.02 %) Soln, 1 VIAL NEB QID PRN for SHORTNESS OF BREATH for 30 Days, #300 ML 0 Refills Prov:SHANNON WALKER 05/14/24 Loratadine (Loratadine) 10 Mg Tablet, 1 TAB PO DAILY for allergy symptoms for 30 Days, #30 TAB 0 Refills Prov:SHANNON WALKER 05/14/24 Levofloxacin (Levofloxacin) 500 Mg Tablet, 1 TAB PO DAILY for 5 Days, #10 TAB 0 Refills Prov:SHANNON WALKER 05/14/24 Oseltamivir Phosphate (Tamiflu) 75 Mg Cap, 75 MG PO DAILY for 1 Day, #2 CAP Prov:SHANNON WALKER 05/14/24 Tamsulosin HCl (Flomax) 0.4 Mg Cap.er.24h, 0.4 MG PO DAILY, #30 CAPSULE.DR Prov:SHANNON WALKER 05/14/24 Benzonatate (Benzonatate) 100 Mg Capsule, 100 MG PO Q8H PRN for COUGH for 7 Days, #21 CAP Prov:SHANNON WALKER 05/14/24 Reported Medications Latanoprost (Latanoprost) 0.005 % Drops, 1 DROP OP HS, ML 0 Refills 05/11/24 Timolol Maleate (Timolol Maleate) 0.5 % Kelsy.gel, 1 DROP OP DAILY, #15 ML 0 Refills 05/11/24 Nitroglycerin (Nitroglycerin) 0.4 Mg Tab.subl, 0.4 MG SL AD PRN for CHEST PAIN, TAB.SL 05/10/24 Pravastatin Sodium (Pravastatin Sodium) 40 Mg Tablet, 40 MG PO HS, TAB 05/10/24 Aspirin (Aspirin) 81 Mg Tab.chew, 81 MG PO DAILY, TAB.CHEW 05/10/24 Pioglitazone HCl (Pioglitazone HCl) 15 Mg Tablet, 15 MG PO DAILY, TAB 05/10/24 Levothyroxine Sodium (Synthroid 25 Mcg Tab) 25 Mcg Tablet, 25 MCG PO DAILY, TAB 05/10/24 Donepezil HCl (Donepezil HCl) 10 Mg Tablet, 10 MG PO DAILY, TAB 05/10/24 Memantine HCl (Memantine HCl) 10 Mg Tablet, 10 MG PO BID, TAB 05/10/24 Past Medical History Past Medical History: Diabetes-Type II, High Cholesterol, Heart Disease, Hypertension, Hypothyroid Past Surgical History: Other Surgical History Other: HEART STENT Social History Social History: Negative, Lives with family ROS Dictation CONSTITUTIONAL: Fatigue and weakness HEAD/FACE: No signs of trauma. EENT: No eye pain, no blurred vision, no tearing, no double vision, no ear pain, no ear discharge, no nose pain, no nasal congestion, no throat pain, no throat swelling, no mouth pain. RESPIRATORY: No cough, no orthopnea, no SOB, no stridor, no wheezing. CARDIOVASCULAR: Chest pain GASTROINTESTINAL/ABDOMINAL: No abdominal pain, no constipation, no diarrhea, no nausea, no vomiting. GENITOURINARY: No abnormal discharge, no dysuria, no frequent urination, no hematuria. No complaints of pain in the genitals. MUSCULOSKELETAL: No back pain, no gout, no joint pain, no joint swelling, no muscle pain, no muscle stiffness, no neck pain. INTEGUMENTARY: No change in color, no change in hair/nails, no dryness, no lesion, no lumps, no rash. NEUROLOGICAL/PSYCH: No anxiety, not depressed, no emotional problem, no headache, no numbness, no pre-existing deficit, no history of seizures, no tremors, no weakness. HEMATOLOGIC/LYMPHATIC: Not anemic, no history of blood clots, no apparent bleeding, no bruising, glands not swollen. All Systems Negative, Except as Noted. Physical Exam Physical Exam Dictation VITAL SIGNS: Reviewed. GENERAL APPEARANCE: Alert, oriented x3, [id number] distress due to the chest pain HEAD AND FACE: Non-traumatic. EYES: PERRL, pink conjunctivas, eyelid no trauma, anterior chamber clear. EARS: Pinnas intact and no signs of trauma or erythema. Ear canals clear and no discharge. TMs no erythema. NOSE: No discharge, no bleeding. OROPHARYNX: Mouth normal, teeth no caries, tongue pink. Pharynx clear, no erythema. Tonsils no exudates, no abscesses noted. Mucous membrane moist. NECK: Supple, non-tender, no thyromegaly, no masses, no JVD, no bruits. BREAST: Deferred. CHEST: No tenderness, no crepitus, no paradoxical movement, no retractions. LUNGS: Clear, well-ventilated, symmetric, no rales, no wheezing, no rhonchi, no stridor, good breath sounds bilaterally. HEART: Regular rate, regular rhythm, no murmur, no gallops. VASCULAR: No peripheral edema. ABDOMEN: Soft, positive bowel sounds, nondistended, no guarding, nontender, no rebound, no masses no hepatomegaly, no splenomegaly, no Foster's sign, no hernias. RECTAL: Deferred. GENITAL: Deferred. NEUROLOGICAL: Normal speech, gross motor function intact, gross sensory function intact. MUSCULOSKELETAL: Neck nontender, full range of motion, back nontender, full range of motion. EXTREMITIES: Nontender, full range of motion. SKIN: Color pink, dry, no turgor, no rash, no lacerations, no abrasions, no contusions. LYMPHATICS: Deferred. Results Laboratory and Microbiology Lab and Micro Result Laboratory Tests Test 08/31/24 10:14 White Blood Count 16.9 K/uL (4.8-10.8) H Red Blood Count 4.43 MIL/uL (4.50-6.20) L Hemoglobin 13.8 g/dL (14.0-18.0) L Hematocrit 40.5 % (42-54) L Mean Corpuscular Volume 91.4 fL (79-99) Mean Corpuscular Hemoglobin 31.2 pg (27.0-33.0) Mean Corpuscular Hemoglobin Concent 34.1 g/dL (32.0-36.0) Red Cell Distribution Width 13.8 % (11.0-15.5) Platelet Count 174 K/uL (130-400) Mean Platelet Volume 10.5 fL (7.5-10.5) Immature Granulocyte % (Auto) 0.5 % (0-1) Neutrophils (%) (Auto) 87.8 % (40.0-77.0) H Lymphocytes (%) (Auto) 5.2 % (21.0-51.0) L Monocytes (%) (Auto) 6.2 % (3.0-13.0) Eosinophils (%) (Auto) 0.1 % (0.0-8.0) Basophils (%) (Auto) 0.2 % (0.0-5.0) Neutrophils # (Auto) 14.8 K/uL (1.8-7.7) H Lymphocytes # (Auto) 0.9 K/uL (1.0-4.8) L Monocytes # (Auto) 1.0 K/uL (0.1-1.0) Eosinophils # (Auto) 0.02 K/uL (0.00-0.70) Basophils # (Auto) 0.04 K/uL (0.00-0.20) Absolute Immature Granulocyte (auto 0.09 K/uL (0-1) Nucleated Red Blood Cells 0.0 % (0.0-0.19) Sodium Level 134 mmol/L (136-145) L Potassium Level 4.3 mmol/L (3.5-5.1) Chloride Level 99 mmol/L (101-111) L Carbon Dioxide Level 27 mmol/L (21-32) Blood Urea Nitrogen 21 mg/dL (7-18) H Creatinine 1.5 mg/dL (0.5-1.3) H Glomerular Filtration Rate Calc 46 mL/min (>90) Random Glucose 226 mg/dL (70-105) H Total Calcium 9.6 mg/dL (8.5-10.1) Total Creatine Kinase 145 U/L (21-232) # Troponin I High Sensitivity 4 ng/L (4-75) C-Reactive Protein, Quantitative 51.20 mg/L (0.5-3.0) H B-Type Natriuretic Peptide 55 pg/mL (0-100) Thyroid Stimulating Hormone (TSH) 2.45 uIU/mL (0.36-3.74) # MDM CC: Chest pain, fatigue over the last few weeks Historian: Patient Comorbidities: CAD, DM, HTN, DLD Limitations by social determinants of health: None Differential diagnosis: ACS, STEMI/NSTEMI, lung pathology, metabolic disorder, arrhythmia, other. Vital signs: Stable, remained stable here in the ER Clinical exam: Lung sounds are clear, no swelling no JVD, normal heart tones. Bphq-[id number] distress due to the discomfort. EKG (Independently interpreted by me ): Normal sinus rhythm, rate of 72, normal axis, good R-wave progression. T-wave lead three, T-wave inversion lead V3 through V5 with minimal depression. No ST-elevation. No STEMI. Independently interpreted by me. Labs (independently interpreted by me): CBC leukocytosis 16.9k, L shift 88% neutrophils, no bands. Normocytic anemia 13.8. Chemistry panel stable electrolytes, Cr 1.5, BUN 21. Hypergylcemia 226. Troponin normal. No obvious source of infection regarding the leukocytosis. CXR (independently interpreted by me): no cardiomegaly, pleural effusion, or focal infiltrates. External chart review: I reviewed previous labs, the patient's kidney function appears to be an ELIEL on CKD. Treatment in ED: 325 mg of oral aspirin, 4 mg IV morphine. Heart score: Five due to story, age, risk factors. Plan: Admit for cardiac workup. Consult Dr Multani. Patient agreeable to plan. Consultation: Hospitalist (Karine Mandujano) for admission. Agrees with the plan. ED Course Orders Procedure Category Date Status Time 12 Lead Ekg Tracing- EKG 08/31/24 Logged Technical 10:01 Vital Signs Per CPOE 08/31/24 Transmitted Routine 10:06 B-Type Natriuretic LAB 08/31/24 In Process Peptide 10:06 Chest 1vw RAD 08/31/24 Resulted 10:06 12 Lead Ekg Tracing- EKG 08/31/24 Logged Technical 10:06 Oxygen By Nc/Pulse Ox CPOE 08/31/24 Transmitted 10:06 Maintain Iv CPOE 08/31/24 Transmitted 10:06 Iv Insertion CPOE 08/31/24 Transmitted 10:06 Cardiac Monitoring CPOE 08/31/24 Transmitted 10:06 Pulse Oximetry With CPOE 08/31/24 Transmitted Vs And Prn 10:06 Cbc With Differential LAB 08/31/24 In Process 10:06 Activity: Br W/Brp CPOE 08/31/24 Transmitted With Assist 10:06 Creatine Kinase, Total LAB 08/31/24 Complete 10:06 Troponin I High LAB 08/31/24 Complete Sensitivity 10:06 Urinalysis Profile LAB 08/31/24 Logged 10:06 Basic Metabolic Panel LAB 08/31/24 Complete 10:06 Aspirin 325mg Tab PHA 08/31/24 Complete (Aspirin 325mg Tab) 10:30 Morphine 4mg Syg PHA 08/31/24 Complete (Morphine 4mg Syg) 10:30 Aspirin 325mg Tab PHA 08/31/24 Complete (Aspirin 325mg Tab) 10:20 Morphine 4mg Syg PHA 08/31/24 Complete (Morphine 4mg Syg) 10:20 Crp Quantitative LAB 08/31/24 Complete 10:14 Thyroid Stimulating LAB 08/31/24 Complete Hormone 10:14 Lactic Acid LAB 08/31/24 In Process 10:45 Blood Cult ESTELLA 08/31/24 Logged 10:45 Troponin I High LAB 08/31/24 In Process Sensitivity 11:02 Manual Differential LAB 08/31/24 In Process 10:14 Current Medications Medications (Trade) Dose Ordered Sig/Jay Route PRN Reason Start Time Stop Time Status Last Admin Dose Admin Aspirin (Aspirin 325mg Tab) 325 mg ONCE ONCE PO 08/31/24 10:30 08/31/24 10:31 DC 08/31/24 10:24 Aspirin (Aspirin 325mg Tab) 325 mg STK-MED ONCE .ROUTE 08/31/24 10:20 08/31/24 10:20 DC Morphine Sulfate (morPHINE 4MG SYG) 4 mg ONCE ONCE IVP 08/31/24 10:30 08/31/24 10:31 DC 08/31/24 10:24 Morphine Sulfate (morPHINE 4MG SYG) 4 mg STK-MED ONCE .ROUTE 08/31/24 10:20 08/31/24 10:21 DC Vital Signs Date Time Temp Pulse Resp B/P (MAP) Pulse Ox O2 Delivery O2 Flow Rate FiO2 08/31/24 10:50 60 18 124/53 98 Room Air* 0 21 08/31/24 10:03 97.5 82 18 120/55 96 Room Air 0 08/31/24 10:00 98.2 95 20 121/59 97 Room Air* 0 21 DX & DISP Disposition: Inpatient (Karine Mandujano) Departure Impression: Primary Impression: Unstable angina Additional Impressions: [id number] kidney injury, Uncontrolled diabetes mellitus, Leukocytosis Condition: Stable Referrals: RANDY CAMPA DO (PCP) MILI GONZALEZ DO Aug 31, 2024 10:21
[2024-08-31] MEDS: ASPIRIN 325MG TAB ONE (10:23)
[2024-08-31] MEDS: morPHINE 4 MG SYG ONE (10:23)
[2024-08-31] MEDS: ASPIRIN 325MG TAB PO ONE (10:24)
[2024-08-31] MEDS: morPHINE 4 MG SYG IVP ONE (10:24)
--- NOTE | 2024-08-31 10:31 | HMCIMG ---
PORTABLE CHEST RADIOGRAPH INDICATION: CHEST PAIN COMPARISON: 05/10/2024 FINDINGS: electronic device monitor leads overlie the field of view. Heart size is normal. The pulmonary vascularity and juan luis appear normal. No abnormal pulmonary parenchymal opacity or consolidation identified. Right hemidiaphragm remains slightly elevated. No significant pleural effusion noted. No pneumothorax detected. IMPRESSION: No radiographic evidence for any acute cardiopulmonary process.
[2024-08-31 10:34] LABS: CREATININE 1.5 mg/dL (0.5-1.3); POTASSIUM 4.3 mmol/L (3.5-5.1)
[2024-08-31 10:35] LABS: BASOPHILS # (AUTO) 0.04 K/uL (0.00-0.20); BASOPHILS % (AUTO) 0.2 % (0.0-5.0); EOSINOPHILS # (AUTO) 0.02 K/uL (0.00-0.70); EOSINOPHILS % (AUTO) 0.1 % (0.0-8.0); HEMATOCRIT 40.5 % (42-54); IMMATURE GRANULOCYTE ABSOLUTE 0.09 K/uL (0-1); LYMPHOCYTES # (AUTO) 0.9 K/uL (1.0-4.8); LYMPHOCYTES % (AUTO) 5.2 % (21.0-51.0); MEAN CORPUSCULAR HEMOGLOBIN 31.2 pg (27.0-33.0); MEAN CORPUSCULAR HGB CONC 34.1 g/dL (32.0-36.0); MEAN CORPUSCULAR VOLUME 91.4 fL (79-99); MONOCYTES % (AUTO) 6.2 % (3.0-13.0); NEUTROPHILS # (AUTO) 14.8 K/uL (1.8-7.7); NEUTROPHILS % (AUTO) 87.8 % (40.0-77.0); PLATELET COUNT (AUTO) 174 K/uL (130-400); RED BLOOD CELL COUNT(AUTO) 4.43 MIL/uL (4.50-6.20); RED CELL DISTRIBUTION WIDTH 13.8 % (11.0-15.5); WHITE BLOOD COUNT (AUTO) 16.9 K/uL (4.8-10.8)
[2024-08-31 10:49] LABS: THYROID STIMULATING HORMONE 2.45 uIU/mL (0.36-3.74)
[2024-08-31 10:57] LABS: B-TYPE NATRIURETIC PEPTIDE 55 pg/mL (0-100)
[2024-08-31 11:09] LABS: BAND NEUTROPHILS % (MANUAL) 12 % (0-2); LYMPHOCYTES % (MANUAL) 8 % (22-44); MONOCYTES % (MANUAL) 8 % (2-9); SEGMENTED NEUTROPHILS % 72 % (40-70); TOTAL CELLS COUNTED 100
[2024-08-31 11:10] LABS: MAN.DIFF COMMENT-IMPRESSION MANUAL DIFFERENTIAL; PLATELET MORPHOLOGY COMMENT ADEQUATE; WBC MORPHOLOGY CONSISTENT W/DIFF
--- NOTE | 2024-08-31 11:25 | HP ---
[facility] HISTORY & PHYSICAL Date Patient Seen: Aug 31, 2024 Time of Visit: 11:24 Supervising Physician:Luis Gardner MD Primary Care Physician: Kenia Montiel DO Outpatient Specialists:DR Multani Inpatient Consults: DR Multani PROBLEM LIST: Chest Pain HEART Score 4 (Moderate) Suspected CAP Leukocytosis with left shift, POA Normocytic anemia Hyperglycemia in the presence of type 2 diabetes mellitus ELIEL POA Essential hypertension Dementia History of UTI and suspected BPH HPI: This is an 79-year-old male with a past medical history of CAD status post stenting, essential hypertension, type 2 diabetes mellitus, and previous UTI with suspected BPH, who presented to the ED for evaluation of chest pain on the left side. Patient reports he was combing his hair while left side chest pain started and continued until given morphine in the ED. per ED physician would like patient is admitted for chest pain workup. On assessment he was awake alert and oriented x3 with at the bedside. He reports no chest pain at the time of my assessment. He was hemodynamically stable and afebrile. He does report a cough that started two days ago. On laboratory WBCs were elevated at 16.9 H&H 13.8/40.5 with a platelet count of 174 K and neutrophils of 87.8. Sodium 134 chloride of 99 BUN 21 creatinine of 1.5 with a GFR of 46 glucose of 226 mg/dL CRP of 51.20. Lactic acid of 2.1 initial troponins were negative x2 BNP of 55. Due to patient with chest pain with a moderate heart score of [address] Multani which is the patient's established waiver analyst. We will obtain a UA to rule out cystitis renal ultrasound and urine lytes. Started patient on empiric antibiotics for suspected community-acquired pneumonia. Informed the patient and on plan of care both verbalized agreement. PAST MEDICAL HX: Suspect BPH Octogenarian Dementia Essential hypertension Type 2 diabetes mellitus Bradycardia COVID-19 infection Sepsis CAD status post stent 15 years ago PAST SURGICAL HX: CAD status post stent 15 years ago SOCIAL HISTORY: No tobacco, ETOH, or illicit drug use Coded Allergies: No Known Allergies (Unverified Allergy, 11/14/11) REVIEW OF SYSTEMS: General: No malaise or fever. Neurological: No fainting episodes or seizures. HEENT: No nasal congestion or nasal secretion. Respiratory: Yes for cough, no for shortness of breath, or wheezing Cardiac: Yes for chest pain no palpitations. Gastrointestinal: No vomiting or diarrhea. Genitourinary: No dysuria hematuria. Skin: No rashes or lesions. Hematological: No bruises or bleeding. Musculoskeletal: No joint pains or arthralgias. Psychiatric: No depression or panic attacks. PHYSICAL EXAM: GENERAL: alert, weak, awake oriented x 3 HEENT: EOMI, Sclera non icteric, moist mucosa NECK: Supple, no JVD, trachea midline LUNGS: Clear breath sounds bilaterally. No wheezes HEART: Regular rate and rhythm. Normal S1 and S2, without murmurs ABD: Abdomen soft, nontender. Bowel sounds present EXT: No clubbing cyanosis or edema NEURO: Alert and oriented to person, follows commands Vital Signs (last 8hr) Date Time Temp Pulse Resp B/P (MAP) Pulse Ox O2 Delivery O2 Flow Rate FiO2 08/31/24 10:50 60 18 124/53 98 Room Air* 0 21 08/31/24 10:03 97.5 82 18 120/55 96 Room Air 0 08/31/24 10:00 98.2 95 20 121/59 97 Room Air* 0 21 LABS: Hematology Labs: Test 08/31/24 10:14 Range/Units White Blood Count 16.9 H 4.8-10.8 K/uL Red Blood Count 4.43 L 4.50-6.20 MIL/uL Hemoglobin 13.8 L 14.0-18.0 g/dL Hematocrit 40.5 L 42-54 % Mean Corpuscular Volume 91.4 79-99 fL Mean Corpuscular Hemoglobin 31.2 27.0-33.0 pg Mean Corpuscular Hemoglobin Concent 34.1 32.0-36.0 g/dL Red Cell Distribution Width 13.8 11.0-15.5 % Platelet Count 174 130-400 K/uL Mean Platelet Volume 10.5 7.5-10.5 fL Immature Granulocyte % (Auto) 0.5 0-1 % Neutrophils (%) (Auto) 87.8 H 40.0-77.0 % Lymphocytes (%) (Auto) 5.2 L 21.0-51.0 % Monocytes (%) (Auto) 6.2 3.0-13.0 % Eosinophils (%) (Auto) 0.1 0.0-8.0 % Basophils (%) (Auto) 0.2 0.0-5.0 % Neutrophils # (Auto) 14.8 H 1.8-7.7 K/uL Lymphocytes # (Auto) 0.9 L 1.0-4.8 K/uL Monocytes # (Auto) 1.0 0.1-1.0 K/uL Eosinophils # (Auto) 0.02 0.00-0.70 K/uL Basophils # (Auto) 0.04 0.00-0.20 K/uL Absolute Immature Granulocyte (auto 0.09 0-1 K/uL Segmented Neutrophils % 72 H 40-70 % Band Neutrophils % 12 H 0-2 % Lymphocytes % (Manual) 8 L 22-44 % Monocytes % (Manual) 8 2-9 % Nucleated Red Blood Cells 0.0 0.0-0.19 % Differential Comment MANUAL DIFFERENTIAL White Cell Morphology Comment CONSISTENT W/DIFF Platelet Morphology Comment ADEQUATE Red Blood Cell Morphology ANISO 1+ Chemistry Labs: Test 08/31/24 11:02 08/31/24 10:14 Range/Units Lactic Acid Level 2.1 0.8-2.5 mmol/L Sodium Level 134 L 136-145 mmol/L Potassium Level 4.3 3.5-5.1 mmol/L Chloride Level 99 L 101-111 mmol/L Carbon Dioxide Level 27 21-32 mmol/L Blood Urea Nitrogen 21 H 7-18 mg/dL Creatinine 1.5 H 0.5-1.3 mg/dL Glomerular Filtration Rate Calc 46 >90 mL/min Random Glucose 226 H 70-105 mg/dL Total Calcium 9.6 8.5-10.1 mg/dL Total Creatine Kinase 145 # 21-232 U/L Troponin I High Sensitivity 4 4-75 ng/L C-Reactive Protein, Quantitative 51.20 H 0.5-3.0 mg/L B-Type Natriuretic Peptide 55 0-100 pg/mL Thyroid Stimulating Hormone (TSH) 2.45 # 0.36-3.74 uIU/mL DIAGNOSTICS / RADIOLOGY RESULTS: [ ]Signed PATIENT: ROBER LANE MR#: [id number] : 1945 SEX: M AGE: 79 LOCATION: [facility] ORDER [id number] STATUS: REG REPORT#: [id number] SERVICE 1006 REASON: CHEST PAIN ORDERING PHYSICIAN: MILI GONZALEZ DO PROCEDURE: CXR1VW - CHEST 1VW PORTABLE CHEST RADIOGRAPH INDICATION: CHEST PAIN COMPARISON: 05/10/2024 FINDINGS: cell installer leads overlie the field of view. Heart size is normal. The pulmonary vascularity and juan luis appear normal. No abnormal pulmonary parenchymal opacity or consolidation identified. Right hemidiaphragm remains slightly elevated. No significant pleural effusion noted. No pneumothorax detected. IMPRESSION: No radiographic evidence for any acute cardiopulmonary process. DICTATED BY: PETER RAO MD DATE: 08/31/24 1025 ELECTRONICALLY SIGNED BY: PETER RAO MD DATE: 08/31/24 1031 PLAN Admit to PCCU Consult Dr. Multani Follow cardiology recommendations Urinalysis Renal ultrasound Urine lytes Bladder scan Empiric antibiotics with Rocephin and doxycycline 500 mL of NS IV bolus x1 Cardiac diet GI and DVT prophylaxis Chest x-ray in surveillance labs in the morning. Cardiac panel x3 NEURO: Minimize central acting medications as possible. Maintain fall precautions, adequate lighting during the day PULMONARY: Supplemental 02 as needed. Maintain aspiration precautions at all times CARDIOVASCULAR: Follow hemodynamics. Vital signs per facility protocol GI & NUTRITION: Continue with nutritional support. Continue stool softeners and laxatives as needed. KIDNEYS & ELECTROLYTES: Strict monitoring of intake, output and overall fluid balance. Avoid nephrotoxic medications to the extent possible. Medications to be dosed according to renal function. Monitor electrolytes and replace as needed ENDOCRINE: Maintain blood glucose between 100-180 at all times. Hypoglycemia protocol in place INFECTIOUS DISEASE: Trend temperature, WBC and procalcitonin level Follow cultures, deescalate antibiotics as soon as possible. Panculture if new onset fever ONCOLOGY/HEMATOLOGY/COAGULATION: Monitor for s/s of bleeding Monitor hemoglobin, coagulation studies as needed SKIN: Pressure ulcer prevention per facility protocol Specialty mattress ORTHO/REHAB: Continue PT/OT Prophylaxis: Continue GI and DVT prophylaxis Code Status: Full Resuscitation Disposition: TBD Other: Total patient care time exceeds 35 minutes excluding all procedures. ATTESTATION BY PHYSICIAN I attest that I reviewed and discussed the case with the Physician Test Grader as well as agree with the Physician Test Grader's findings, plans of care, and docum entation above. Luis Amor MD, NELLY J ARNP Aug 31, 2024 11:24
[2024-08-31] MEDS ORDERED: morPHINE 2 MG SYG IVP PRN (11:30)
[2024-08-31] MEDS ORDERED: acetaMINOPHEN 325 MG TAB PO PRN (11:30)
[2024-08-31] MEDS ORDERED: ondanSETRON 4MG INJ IVP PRN (11:30)
[2024-08-31] MEDS ORDERED: doCUSate SODIUM 100 MG CAP PO PRN (11:30)
[2024-08-31] MEDS ORDERED: acetaMINOPHEN 650 MG SUPPOSITORY RC PRN (11:30)
[2024-08-31] MEDS: CEFTRIAXONE 2GM VIAL IVPB SCH (11:53)
[2024-08-31] MEDS: INSULIN humuLIN R 100 UNIT/ML 3ML SQ SCH (11:56)
[2024-08-31] MEDS: 0.9% NACL 500ML IV.SOLN 500 ML IV SCH (12:06)
[2024-08-31 12:14] LABS: RAPID GROUP A STREP negative (NEGATIVE)
[2024-08-31 12:24] LABS: INFLUENZA TYPE A Negative For Type A (NEGATIVE); INFLUENZA TYPE B Negative For Type B (NEGATIVE)
[2024-08-31 12:27] LABS: COVID19 (SARS ANTIGEN RAPID) PRESUMPTIVE NEGATIVE (NEGATIVE)
--- NOTE | 2024-08-31 14:31 | EKG ---
[facility] Test Date: 2024-08-31 Test Time: 10:05:07 Pat Name: ROBER LANE Department: EDHIP Room: ED 11 Gender: M Safety Companion: [id number] : 1945 Requested By: ARCHANA SALAS Order Number: [id number] Reading MD: Ranjeet Multani Measurements Intervals [place] Rate: 72 P: 29 [place]: 172 QRS: 20 QRSD: 89 T: -4 QT: 409 QTc: 447 Interpretive Statements Sinus rhythm Nonspecific STT abnormality Compared to ECG 05/13/2024 11:48:08 Sinus bradycardia no longer present Electronically Signed On 08-31-2024 17:30:01 CDT by Ranjeet Multani Please click the below link to view image of tracing.
--- NOTE | 2024-08-31 20:06 | HMCIMG ---
US RENAL SONOGRAM HISTORY: rule out hydronephrosis. Pain TECHNIQUE: US RENAL SONOGRAM. FINDINGS: RIGHT KIDNEY: The right kidney measures 9.8cm. No hydronephrosis or renal calculus seen. LEFT KIDNEY: The left kidney measures 9.2cm. No hydronephrosis or renal calculus seen. The visualized urinary bladder is within normal limits. IMPRESSION: No hydronephrosis is seen.
[2024-08-31] MEDS: DOXYCYCLINE HYCLATE 100 MG TABLET PO SCH (21:17)
[2024-08-31] MEDS: simVASTatin 20 MG TABLET PO SCH (21:17)
[2024-09-01 08:23] LABS: CREATININE 1.1 mg/dL (0.5-1.3); MAGNESIUM 1.7 mg/dL (1.80-2.40); PHOSPHORUS 2.9 mg/dL (2.5-4.9); THYROID STIMULATING HORMONE 1.92 uIU/mL (0.36-3.74)
[2024-09-01] MEDS: PANTOPrazole 40 MG TAB DR PO SCH (09:46)
[2024-09-01] MEDS: ASPIRIN 81MG CHEW TAB PO SCH (09:47)
[2024-09-01] MEDS: polyETHYLene GLYCol 3350 17 GM POWD.PACK PO SCH (09:48)
[2024-09-01] MEDS: ENOXAPARIN SODIUM 30 MG/0.3 ML SQ SCH (09:50)
--- NOTE | 2024-09-01 10:10 | NUR ---
DCP: HOME Pt currently lives in his home with his Tawny Robledo [phone]. Pt did not report any insecurities with food, group home, and/or utilities. Pt stated that he does not have any DME or home health services. PCP is Varsha Das and uses [facility] for any RX needs. Pt states at DC he wants to go home and sps will assist with transportation. Addendum: 09/01/24 at 1013 by SHANNON KENNEY SS Amended: Links added.
[2024-09-01 10:14] LABS: BASOPHILS # (AUTO) 0.03 K/uL (0.00-0.20); BASOPHILS % (AUTO) 0.3 % (0.0-5.0); EOSINOPHILS # (AUTO) 0.18 K/uL (0.00-0.70); EOSINOPHILS % (AUTO) 1.8 % (0.0-8.0); HEMATOCRIT 34.6 % (42-54); IMMATURE GRANULOCYTE ABSOLUTE 0.05 K/uL (0-1); LYMPHOCYTES # (AUTO) 1.3 K/uL (1.0-4.8); LYMPHOCYTES % (AUTO) 12.6 % (21.0-51.0); MEAN CORPUSCULAR HEMOGLOBIN 31.3 pg (27.0-33.0); MEAN CORPUSCULAR HGB CONC 33.8 g/dL (32.0-36.0); MEAN CORPUSCULAR VOLUME 92.5 fL (79-99); MONOCYTES # (AUTO) 0.5 K/uL (0.1-1.0); MONOCYTES % (AUTO) 5.3 % (3.0-13.0); NEUTROPHILS # (AUTO) 7.9 K/uL (1.8-7.7); NEUTROPHILS % (AUTO) 79.5 % (40.0-77.0); PLATELET COUNT (AUTO) 152 K/uL (130-400); RED BLOOD CELL COUNT(AUTO) 3.74 MIL/uL (4.50-6.20); RED CELL DISTRIBUTION WIDTH 14.1 % (11.0-15.5); WHITE BLOOD COUNT (AUTO) 9.9 K/uL (4.8-10.8)
[2024-09-01 10:32] LABS: B-TYPE NATRIURETIC PEPTIDE 66 pg/mL (0-100)
[2024-09-01] MEDS ORDERED: PHARMACY COMMUNICATION MISC SCH (11:30)
--- NOTE | 2024-09-01 13:04 | HMCIMG ---
CHEST 1VW HISTORY: Respiratory failure COMPARISON: 08/31/2024 FINDINGS: A frontal projection of the chest was obtained. No acute pulmonary infiltrates is seen. The heart is borderline enlarged. Degenerative changes are seen. Prominent interstitial markings are seen. No evidence of aortic calcification is seen. IMPRESSION: 1. No acute pulmonary infiltrate is seen.
--- NOTE | 2024-09-01 13:55 | CONS ---
[facility] CARDIOLOGY CONSULTATION REPORT Cardiology consultation note dictated for William Dowell MD Primary director prospect: Ranjeet Multani MD Date Patient Seen: Sep 01, 2024 Requesting Physician: DIVINA Cheng Reason for Consultation: Chest pain History of Present Illness: This is an 79-year-old male with a past medical history of hypertension, dyslipidemia, diabetes mellitus type 2 with circulatory complications, CAD with remote history of stent to the Lt Cx, normal Lexiscan stress test on 06/27/2022, PAD s/p DRUM REEL CUTTER of the right anterior tibial artery on 09/16/2020, s/p DRUM REEL CUTTER of the left anterior tibial artery on 11/19/2020, arterial duplex on 05/10/2024 demonstrated right renal artery aortic ratio of 1.96 consistent with less than 60% stenosis and left renal artery aortic ratio of 4.4 consistent with greater than 60% stenosis, myalgias with atorvastatin, GERD, BPH, ED, and dementia who presented to the ED with complaints of chest pain. WBC of 16.9 on admission has decreased to 9.9 today. Cardiology has been consulted for chest pain. The patient is a poor historian but at the bedside was able to add to the interval history. The patient endorsed non-radiating, left-sided chest discomfort described as pressure-like, with an 8/10 intensity that lasted approximately 45 minutes to 1 hour. There were no accompanying symptoms or aggravating factors. Symptoms subsided after IV morphine. Troponin of 4, 5, 5 and 8. EKG demonstrated NSR with a hr of 72bpm, 0.5-1mm S-T depression in V4-6. No pleuritic chest pain on deep inspiration or pain to chest wall upon palpation. The patient denies any more episodes of chest pain, he currently denies chest pressure, palpitations, d izziness, shortness of breath, orthopnea, or PND. Past Medical History: As per HPI and summarized below Past Surgical History: [facility] XPS brett prostatectomy/TURP on 11/23/2022 Family History: No family history of CAD. Social History: The patient lives with his . Habits: The patient denies alcohol, tobacco, or illicit drug use. Home Meds: Hospital pending medication reconciliation. Home medication list on last [facility] visit on 05/28/2024 as followed: Loratadine 10 MG Tablet 1 tablet Orally Once a day. Ipratropium [place] 0.02 % Solution 2.5 mL as needed Inhalation every 8 hrs. Benzonatate 100 MG Capsule 1 capsule as needed Orally Three times a day. Nitroglycerin 0.4 MG Tablet Sublingual 1 TABLET Sublingual EVERY 5 MIN X3 NEEDED FOR CHEST PAIN. Vitamin B Complex - Capsule as directed Orally. Synthroid 25 MCG Tablet 1 tablet in the morning on an empty stomach Orally Once a day. Donepezil HCl 10 MG Tablet 1 tablet at bedtime Orally Once a day. Aspirin 81 MG Capsule 1 capsule Orally Once a day as needed. Pioglitazone HCl 15 MG Tablet 1 tablet Orally Once a day. Memantine HCl 10 MG Tablet 1 tablet Orally twice a day. Pravastatin Sodium 40 MG Tablet 1 tablet Orally once a day at bedtime. Losartan Potassium 50 MG Tablet 1 tablet Orally twice a day. Current Meds: Medications Dose Ordered Sig/Jay Start Time Stop Time Status Last Admin Docusate Sodium 100 mg BID PRN 08/31/24 11:30 09/30/24 11:29 Polyethylene Glycol 17 gm DAILY 09/01/24 09:00 10/01/24 08:59 09/01/24 09:48 Pantoprazole Sodium 40 mg DAILY 09/01/24 09:00 10/01/24 08:59 09/01/24 09:46 Enoxaparin Sodium 30 mg DAILY 09/01/24 09:00 10/01/24 08:59 09/01/24 09:50 Aspirin 81 mg DAILY 09/01/24 09:00 10/01/24 08:59 09/01/24 09:47 Simvastatin 40 mg HS 08/31/24 21:00 09/30/24 20:59 08/31/24 21:17 Acetaminophen 650 mg Q6H PRN 08/31/24 11:30 09/30/24 11:29 Acetaminophen 650 mg Q6H PRN 08/31/24 11:30 09/30/24 11:29 Ondansetron HCl 4 mg Q6H PRN 08/31/24 11:30 09/30/24 11:29 Morphine Sulfate 2 mg Q4H PRN 08/31/24 11:30 09/07/24 11:29 Insulin Human Regular INSULIN SLIDING SCAL... ACHS 08/31/24 11:30 09/30/24 11:29 08/31/24 21:19 Ceftriaxone Sodium 2 gm Q24H 08/31/24 11:30 09/10/24 11:29 09/01/24 12:54 Doxycycline Hyclate 100 mg BID 08/31/24 21:00 09/10/24 20:59 09/01/24 09:46 Review of Systems: CONST: No fever, fatigue, or weight changes. EYES: No recent vision problems. ENT: No congestion, ear pain, or sore throat. C/V: No chest pain, palpitations, or edema. RESP: No cough, congestion, wheezing or shortness of breath. GI: No abdominal pain, nausea, vomiting, constipation, or diarrhea. : No incontinence or dysuria. SKIN: No rash. NEURO: No headache, focal numbness or weakness, dizziness, or seizures. PSYCH: No depression or anxiety. HEME: No abnormal bruising or bleeding. LYMPH: No swollen glands. Physical Examination: GENERAL: No acute distress. HEAD: Normal with no signs of head trauma. EYES: PERRLA, EOMI, conjunctiva and sclera normal. ENT: Hearing grossly intact, normal oropharynx. NECK: Supple without JVD. Left carotid bruit. LUNGS: Clear breath sounds bilaterally. No wheezes, or rhonchi. HEART: Normal rate and rhythm. Normal S1 and S2 without murmurs, gallop or rub. VASC: Peripheral pulses +2 bilaterally. ABD: Bowel sounds normal, soft, nontender, no masses, no organomegaly. No audible bruits. : Not examined LYMPH: No lymphadenopathy noted. EXT: No clubbing, cyanosis or edema. SKIN: No rashes or lesions noted. NEURO: Awake and alert. Poor memory. Vital Signs (last 8hr) Date Time Temp Pulse Resp B/P (MAP) Pulse Ox O2 Delivery O2 Flow Rate FiO2 09/01/24 13:04 98.1 69 18 112/61 98 Room Air* 0 09/01/24 07:46 98.1 64 11 93/57 99 Room Air* 0 09/01/24 06:40 61 12 108/48 100 Room Air* 0 09/01/24 05:50 64 14 116/47 100 Room Air* 0 21 Laboratory: Hematology Labs: Test 09/01/24 09:47 08/31/24 10:14 Range/Units White Blood Count 9.9 # 4.8-10.8 K/uL Red Blood Count 3.74 L 4.50-6.20 MIL/uL Hemoglobin 11.7 L 14.0-18.0 g/dL Hematocrit 34.6 L 42-54 % Mean Corpuscular Volume 92.5 79-99 fL Mean Corpuscular Hemoglobin 31.3 27.0-33.0 pg Mean Corpuscular Hemoglobin Concent 33.8 32.0-36.0 g/dL Red Cell Distribution Width 14.1 11.0-15.5 % Platelet Count 152 130-400 K/uL Mean Platelet Volume 10.7 H 7.5-10.5 fL Immature Granulocyte % (Auto) 0.5 0-1 % Neutrophils (%) (Auto) 79.5 H 40.0-77.0 % Lymphocytes (%) (Auto) 12.6 L 21.0-51.0 % Monocytes (%) (Auto) 5.3 3.0-13.0 % Eosinophils (%) (Auto) 1.8 0.0-8.0 % Basophils (%) (Auto) 0.3 0.0-5.0 % Neutrophils # (Auto) 7.9 H 1.8-7.7 K/uL Lymphocytes # (Auto) 1.3 1.0-4.8 K/uL Monocytes # (Auto) 0.5 0.1-1.0 K/uL Eosinophils # (Auto) 0.18 0.00-0.70 K/uL Basophils # (Auto) 0.03 0.00-0.20 K/uL Absolute Immature Granulocyte (auto 0.05 0-1 K/uL Nucleated Red Blood Cells 0.0 0.0-0.19 % Segmented Neutrophils % 72 H 40-70 % Band Neutrophils % 12 H 0-2 % Lymphocytes % (Manual) 8 L 22-44 % Monocytes % (Manual) 8 2-9 % Differential Comment MANUAL DIFFERENTIAL White Cell Morphology Comment CONSISTENT W/DIFF Platelet Morphology Comment ADEQUATE Red Blood Cell Morphology ANISO 1+ Chemistry Labs: Test 09/01/24 12:28 09/01/24 09:47 09/01/24 07:14 08/31/24 23:25 Range/Units Whole Blood Glucose 118 H 70-110 MG/DL B-Type Natriuretic Peptide 66 0-100 pg/mL Sodium Level 137 136-145 mmol/L Potassium Level 4.0 3.5-5.1 mmol/L Chloride Level 106 101-111 mmol/L Carbon Dioxide Level 27 21-32 mmol/L Blood Urea Nitrogen 19 H 7-18 mg/dL Creatinine 1.1 0.5-1.3 mg/dL Glomerular Filtration Rate Calc 67 >90 mL/min Random Glucose 120 H 70-105 mg/dL Total Calcium 8.5 8.5-10.1 mg/dL Phosphorus Level 2.9 2.5-4.9 mg/dL Magnesium Level 1.70 L 1.80-2.40 mg/dL Total Creatine Kinase 74 21-232 U/L Procalcitonin 0.50 0.05-0.5 ng/mL Thyroid Stimulating Hormone (TSH) 1.92 # 0.36-3.74 uIU/mL Troponin I High Sensitivity 8.1 4-75 ng/L Test 08/31/24 15:52 08/31/24 10:14 Range/Units Lactic Acid Level 1.0 0.8-2.5 mmol/L C-Reactive Protein, Quantitative 51.20 H 0.5-3.0 mg/L Diagnostics / Radiology: Impression and Plan: Chest pain Leukocytosis POA HTN DLD DM type II CAD with remote history of stent to the Lt Cx Normal Lexiscan stress test on 06/27/2022 PAD s/p DRUM REEL CUTTER of the right anterior tibial artery on 09/16/2020, s/p DRUM REEL CUTTER of the left anterior tibial artery on 11/19/2020 Right renal artery with less than 60% stenosis Left renal artery with greater than 60% stenosis Chest pain Troponin of 4, 5, 5 and 8 EKG demonstrated NSR with a hr of 72bpm, 0.5-1mm S-T depression in V4-6 Normal Lexiscan stress test on 06/27/2022 -Repeat EKG VON NOVAK [facility] Sep 01, 2024 13:55
--- NOTE | 2024-09-01 14:47 | EKG ---
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
[2024-09-01] MEDS ORDERED: DOXY100C5 PO (15:41)
--- NOTE | 2024-09-01 15:41 | DS ---
[facility] DISCHARGE SUMMARY Date Patient Seen: Sep 01, 2024 Time of Visit: 15:41 Supervising Physician: Dr. Luis Gardner Primary Care Physician: Kenia Montiel DO Outpatient Specialists:DR Multani Inpatient Consults: DR Multani HOSPITAL COURSE: HPI (per admitting provider) This is an 79-year-old male with a past medical history of CAD status post stenting, essential hypertension, type 2 diabetes mellitus, and previous UTI with suspected BPH, who presented to the ED for evaluation of chest pain on the left side. Patient reports he was combing his hair while left side chest pain started and continued until given morphine in the ED. per ED physician dianne sanchez e patient is admitted for chest pain workup. On assessment he was awake alert and oriented x3 with at the bedside. He reports no chest pain at the time of my assessment. He was hemodynamically stable and afebrile. He does report a cough that started two days ago. On laboratory WBCs were elevated at 16.9 H&H 13.8/40.5 with a platelet count of 174 K and neutrophils of 87.8. Sodium 134 chloride of 99 BUN 21 creatinine of 1.5 with a GFR of 46 glucose of 226 mg/dL CRP of 51.20. Lactic acid of 2.1 initial troponins were negative x2 BNP of 55. Due to patient with chest pain with a moderate heart score of [address] 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 We will obtain a UA to rule out cystitis renal ultrasound and urine lytes. Started patient on empiric antibiotics for suspected community-acquired pneumonia. Informed the patient and on plan of care both verbalized agreement. The patient was treated for the following problems: Patient evaluated at bedside today we will remained in good spirits with no further events and chest pain. The patient's chest workup has been negative, repeat EKG shows improved conduction with only T-wave abnormalities versus intermittent ST depressions on previous EKG. Patient was being discharged today with the recommended follow up with Cardiology as well as outpatient antibiotic therapy for community-acquired pneumonia. White count down to 9.9 prior to admission. ACTIVE PROBLEM LIST FOR THE HOSPITALIZATION: Chest Pain HEART Score 4 (Moderate) Suspected CAP Leukocytosis with left shift, POA Normocytic anemia Hyperglycemia in the presence of type 2 diabetes mellitus ELIEL POA Essential hypertension Dementia History of UTI and suspected BPH CHRONIC PROBLEMS: continue previous management per PCP unless otherwise indicated PLASTIC DOLLS MOLD FILLER FINDINGS/RECOMMENDATIONS: [ ] PROCEDURES: as mentioned above DISCHARGE MEDICATIONS: Pt hemodynamically stable and afebrile at time of discharge. PCP notified of patients admission, hospital course and discharge. PHYSICAL EXAM: GENERAL: alert, weak, awake oriented x 3 HEENT: EOMI, Sclera non icteric, moist mucosa NECK: Supple, no JVD, trachea midline LUNGS: Clear breath sounds bilaterally. No wheezes HEART: Regular rate and rhythm. Normal S1 and S2, without murmurs ABD: Abdomen soft, nontender. Bowel sounds present EXT: No clubbing cyanosis or edema NEURO: Alert and oriented to person, follows commands FOLLOW-UP: Follow-up with PCP in 2-3 days RECOMMENDATIONS: See Discharge Instructions This case was seen and discussed with my supervising physician. More than 30 minutes spent on discharge process, including evaluation of the patient, discussion with nursing staff, medication reconciliation and follow-up appointments TONNY JOHNSON Sep 01, 2024 15:41
[2024-09-01] MEDS ORDERED: LEVO25CA5 PO (16:23)
[2024-09-01] MEDS ORDERED: CYAN100099 PO (16:23)
[2024-09-01] MEDS ORDERED: DONE10TA43 PO (16:23)
[2024-09-01] MEDS ORDERED: ASPI-1197 PO (16:23)
[2024-09-01] MEDS ORDERED: PRAV40TA3 PO (16:23)
[2024-09-01] MEDS ORDERED: EZET10TA48 PO (16:23)
[2024-09-01] MEDS ORDERED: PIOG15TA66 PO (16:23)
[2024-09-01] MEDS ORDERED: MEMA10TA21 PO (16:23)
[2024-09-01] MEDS ORDERED: LOSA50TA64 PO (16:23)
[2024-09-01 17:42] VITALS: BP 137/67; PULSE 74; RESP 16; TEMP 97.4; O2SAT 98
== END 2024-09-01 18:15 | disposition home or self-care (01) ==
LOC: EDH 09:57 → OBSVTOIN 09:58 → EDHIP 09:58 → INTOOBSV 09:58 → UNDOADMOB 11:14 → INTOOBSV 11:14 → EDHIP 11:14
PROVIDERS: ADMIT Internal Medicine Critical Care Medicine; ATTEND Internal Medicine Critical Care Medicine
DX: R07.89 Other chest pain (principal); D72.829 Elevated white blood cell count, unspecified; E78.00 Pure hypercholesterolemia, unspecified; E03.9 Hypothyroidism, unspecified; I25.110 Atherosclerotic heart disease of native coronary artery with unstable angina pectoris; N17.9 Acute kidney failure, unspecified; I10 Essential (primary) hypertension; E11.65 Type 2 diabetes mellitus with hyperglycemia; E11.51 Type 2 diabetes mellitus with diabetic peripheral angiopathy without gangrene; N40.0 Benign prostatic hyperplasia without lower urinary tract symptoms; E78.5 Hyperlipidemia, unspecified; Z95.5 Presence of coronary angioplasty implant and graft; Z98.890 Other specified postprocedural states; Z79.899 Other long term (current) drug therapy; Z79.82 Long term (current) use of aspirin; Z20.822 Contact with and (suspected) exposure to COVID-19
CPT/HCPCS: 96365; 96375; 99285; 84443 ×2; 82550 ×5; 84484 ×4; 80048 ×2; 83880 ×2; 85025 ×2; 87040 ×2; 87880; 87804 ×2; 82948 ×6; 83605 ×2; 86140; 87426; 36415 ×2; 71045 ×2; 76770; 93005 ×2; 87641; 96372; 96366; 83735; 84100; 84145; J0696 ×2; J2270; G0378 ×10; J1650

== ENCOUNTER 2025-03-02 10:37 | Observation (INO) | payer MEDICARE ==
[~2025-03-02] VITALS: Ht 165.1 cm; Wt 65.3 kg
[~2025-03-02 10:37] MED LIST changes: -BENZ-226 PO; +CYAN-37 PO; +DOXY100C5 PO; +EZET10TA80 PO; -IPRNEB NEB; -LATA2.5D14 OP; -LEVO-70 PO; +LEVO25CA5 PO; -LEVO25TA9 PO; -LORA10TA7 PO; +LOSA50TA64 PO; -NITR0.4T50 SL; -OSEL75 PO; -PRAV40TA3 PO; +PRAV40TA62 PO; -TAMS-55 PO; -TIMO5SOL10 OP
--- NOTE | 2025-03-02 11:08 | EKG ---
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
[2025-03-02 11:21] LABS: IMMATURE GRANULOCYTE ABSOLUTE 0.03 K/uL (0-1); NUCLEATED RED BLOOD CELLS 0.0 % (0.0-0.19); PLATELET COUNT (AUTO) 175 K/uL (130-400); RED BLOOD CELL COUNT(AUTO) 4.18 MIL/uL (4.50-6.20); RED CELL DISTRIBUTION WIDTH 13.7 % (11.0-15.5); WHITE BLOOD COUNT (AUTO) 7.7 K/uL (4.8-10.8)
[2025-03-02 11:29] LABS: CREATININE 1.5 mg/dL (0.5-1.3); GLOMERULAR FILTR. RATE CALC 46.0 mL/min (>90); GLUCOSE,RANDOM 189.0 mg/dL (70-105); SODIUM SERUM 141.0 mmol/L (136-145); UREA NITROGEN, BLOOD 18.0 mg/dL (7-18)
--- NOTE | 2025-03-02 11:30 | HMCIMG ---
EXAM: CT Head Without IV contrast. CLINICAL HISTORY: dizziness TECHNIQUE: Axial computed tomography images of the head/brain without intravenous contrast. COMPARISON: None provided. FINDINGS: BRAIN: No acute bleed or infarct. Chronic ischemic and atrophic changes. VENTRICLES: No hydrocephalus. ORBITS: The orbits are unremarkable. SINUSES AND MASTOIDS: The paranasal sinuses and mastoid air cells are clear. BONES: No fracture. SOFT TISSUES: Unremarkable. IMPRESSION: No acute bleed or infarct. Chronic ischemic and atrophic changes. /[place]
[2025-03-02] MEDS: 0.9%NACL 1000ML 1,000 ML IV STA (12:14)
--- NOTE | 2025-03-02 12:20 | ERN ---
ED Note History of Present Illness Stated Complaint: HEADACHE, DIZZINESS, HYPOTENSION Chief Complaint: Dizzy/Light Headed Time Seen by MD: 10:41 Time Seen by Midlevel: 10:44 Dictation: 79-year-old male with a history of hypertension, thyroid, vertigo and dementia coming in for evaluation of low blood pressure while at home. As per spouse at bedside take patient's blood pressure was 107/79 at home. At this time patient is complaining of dizziness, patient states he feels like the room is spinning. Patient stating he woke up like this. Spouse states he usually takes medication for the dizziness but he did not take it today. Denies having any recent illness, fever, nausea or vomiting. Denies any chest pain or chest discomfort. NIH A0 at this time. Allergies: Coded Allergies: No Known Allergies (Unverified Allergy, 11/14/11) Home Meds Active Scripts Doxycycline Hyclate (Doxycycline Hyclate) 100 Mg Capsule, 1 CAP PO BID for 7 Days, #14 CAP 0 Refills Prov:TONNY JOHNSON PAC 09/01/24 Reported Medications Pravastatin Sodium (Pravastatin Sodium) 40 Mg Tablet, 40 MG PO HS, TAB 09/01/24 Aspirin (Aspirin) 81 Mg Tab.chew, 81 MG PO DAILY, TAB.CHEW 09/01/24 Donepezil HCl (Donepezil HCl) 10 Mg Tablet, 10 MG PO DAILY, TAB 09/01/24 Cyanocobalamin (Vitamin B-12) (B-12) 1,000 Mcg Tablet, 1000 MCG PO BID, TAB 09/01/24 Memantine HCl (Memantine HCl) 10 Mg Tablet, 10 MG PO BID, TAB 09/01/24 Losartan Potassium (Losartan Potassium) 50 Mg Tablet, 50 MG PO BID, TAB 09/01/24 Levothyroxine Sodium (Levothyroxine) 25 Mcg Capsule, 25 MCG PO ACBKFST, CAP 09/01/24 Ezetimibe (Ezetimibe) 10 Mg Tablet, 10 MG PO DAILY, TAB 09/01/24 Pioglitazone HCl (Pioglitazone HCl) 15 Mg Tablet, 15 MG PO DAILY, TAB 09/01/24 Past Medical History Past Medical History: Dementia, Diabetes-Type II, High Cholesterol, Heart Disease, Hypertension, Hypothyroid Surgical History: Other Surgical History Other: HEART STENT Social History: Negative, Lives with family Review of System Dictation Constitutional: Negative for fever,chills, and weight loss Eyes: Negative for injury, pain,redness, and discharge ENT: Negative for injury,pain or swelling Cardiovascular: Negative for chest pain, palpitations, and edema Respiratory: Negative for shortness of breath, cough, and wheezing, Abdomen/GI: Negative for abdominal pain, nausea, vomiting, diarrhea, and constipation Back: Negative for injury and pain : Negative for injury, bleeding and discharge MS/Extremity: Negative for injury and deformity Skin: Negative for rash, and discoloration Neuro: Negative for headache, weakness, numbness, tingling, and seizure Psych: Negative for suicide ideation, homicidal ideation, and hallucinations Review of Systems: was completed Initial Vital Sign VS Vital Signs Date Time Temp Pulse Resp B/P (MAP) Pulse Ox O2 Delivery O2 Flow Rate FiO2 03/02/25 10:40 97.9 68 16 104/54 98 Room Air 0 03/02/25 11:54 21 Physical Exam Dictation General: awake, alert, NAD Head/Face: Normocephalic, atraumatic Eyes: PERRL, EOMI, vision at baseline ENT: oral cavity clear, TMs clear, no signs of infection Neck: Trachea midline, supple, no nuchal rigidity Cardiovascular: RRR, normal S1/S2, No MRGs, no JVD Respiratory: CTAB, no respiratory distress, No rales or wheezes Abdomen: Soft, non-tender, non-distended, normal bowel sounds, no guarding or rebound. Skin: Warm, dry, normal turgor, no rash MS/Extremity: Pulses equal, no cyanosis, neurovascular intact, FROM Neuro: COAx4, GCS 15, strength 5/5, CN 2-12 intact, normal cerebellar exam, normal gait, Psych: Normal behavior, mood, and affect normal Results (Laboratory/Radiology) Laboratory/Radiology Laboratory Tests Test 03/02/25 11:17 White Blood Count 7.7 K/uL (4.8-10.8) Red Blood Count 4.18 MIL/uL (4.50-6.20) L Hemoglobin 13.2 g/dL (14.0-18.0) L Hematocrit 38.6 % (42-54) L Mean Corpuscular Volume 92.3 fL (79-99) Mean Corpuscular Hemoglobin 31.6 pg (27.0-33.0) Mean Corpuscular Hemoglobin Concent 34.2 g/dL (32.0-36.0) Red Cell Distribution Width 13.7 % (11.0-15.5) Platelet Count 175 K/uL (130-400) Mean Platelet Volume 10.4 fL (7.5-10.5) Immature Granulocyte % (Auto) 0.4 % (0-1) Neutrophils (%) (Auto) 70.9 % (40.0-77.0) Lymphocytes (%) (Auto) 18.5 % (21.0-51.0) L Monocytes (%) (Auto) 7.1 % (3.0-13.0) Eosinophils (%) (Auto) 2.6 % (0.0-8.0) Basophils (%) (Auto) 0.5 % (0.0-5.0) Neutrophils # (Auto) 5.5 K/uL (1.8-7.7) Lymphocytes # (Auto) 1.4 K/uL (1.0-4.8) Monocytes # (Auto) 0.6 K/uL (0.1-1.0) Eosinophils # (Auto) 0.20 K/uL (0.00-0.70) Basophils # (Auto) 0.04 K/uL (0.00-0.20) Absolute Immature Granulocyte (auto 0.03 K/uL (0-1) Nucleated Red Blood Cells 0.0 % (0.0-0.19) Sodium Level 141 mmol/L (136-145) Potassium Level 4.6 mmol/L (3.5-5.1) Chloride Level 104 mmol/L (101-111) Carbon Dioxide Level 30 mmol/L (21-32) Blood Urea Nitrogen 18 mg/dL (7-18) Creatinine 1.5 mg/dL (0.5-1.3) H Glomerular Filtration Rate Calc 46 mL/min (>90) Random Glucose 189 mg/dL (70-105) H Total Calcium 8.9 mg/dL (8.5-10.1) Troponin I High Sensitivity 7 ng/L (4-75) Labs Reviewed?: Yes CT Scan Comment: [facility] [address] [place] [id number] IMAGING REPORT Signed PATIENT: ROBER LANE MR#: [id number] : 1945 SEX: M AGE: 79 LOCATION: [facility] ORDER 47 STATUS: REG ER REPORT#: [id number] SERVICE 46 REASON: dizziness ORDERING PHYSICIAN: HERO ROBBINS CNP PROCEDURE: HEAD WO - CT HEAD/BRAIN W/O CONTRAST EXAM: CT Head Without IV contrast. CLINICAL HISTORY: dizziness TECHNIQUE: Axial computed tomography images of the head/brain without intravenous contrast. COMPARISON: None provided. FINDINGS: BRAIN: No acute bleed or infarct. Chronic ischemic and atrophic changes. VENTRICLES: No hydrocephalus. ORBITS: The orbits are unremarkable. SINUSES AND MASTOIDS: The paranasal sinuses and mastoid air cells are clear. BONES: No fracture. SOFT TISSUES: Unremarkable. IMPRESSION: No acute bleed or infarct. Chronic ischemic and atrophic changes. /[place] DICTATED BY: LINETTE BANKS MD DATE: 03/02/251228 ELECTRONICALLY SIGNED BY: LINETTE BANKS MD DATE: 03/02/251228 ED Course ED Course Orders Procedure Category Date Status Time 12 Lead Ekg Tracing- EKG 03/02/25 Resulted Technical 10:43 Cbc With Differential LAB 03/02/25 Complete 10:47 Basic Metabolic Panel LAB 03/02/25 Complete 10:47 Troponin I High LAB 03/02/25 Complete Sensitivity 10:47 Urinalysis Profile LAB 03/02/25 Logged 10:47 Ct Head/Brain W/O CT 03/02/25 Resulted Contrast 10:47 0.9%Nacl 1000ml (Ns PHA 03/02/25 Complete 1000ml) 10:48 Meclizine Hcl 25 Mg PHA 03/02/25 Complete (Antivert 25 Mg) 11:00 Current Medications Medications (Trade) Dose Ordered Sig/Jay Route PRN Reason Start Time Stop Time Status Last Admin Dose Admin Meclizine HCl (ANTIvert 25 mg) 25 mg ONCE ONCE PO 03/02/25 11:00 03/02/25 11:01 DC 03/02/25 12:14 Sodium Chloride 1,000 ml @ 1,000 mls/hr Q1H STAT IV 03/02/25 10:48 03/02/25 11:47 DC 03/02/25 12:14 Vital Signs Date Time Temp Pulse Resp B/P (MAP) Pulse Ox O2 Delivery O2 Flow Rate FiO2 03/02/25 11:54 97.0 59 13 139/72 97 Room Air* 0 21 03/02/25 10:40 97.9 68 16 104/54 98 Room Air 0 Medical Decision Making MDM MDM: 79-year-old male with a history of hypertension, thyroid, vertigo and dementia coming in for evaluation of low blood pressure while at home. As per spouse at bedside take patient's blood pressure was 107/79 at home. At this time patient is complaining of dizziness, patient states he feels like the room is spinning. Patient stating he woke up like this. Spouse states he usually takes medication for the dizziness but he did not take it today. Denies having any recent illness, fever, nausea or vomiting. Denies any chest pain or chest discomfort. NIH 0 at this time. CBC shows no leukocytosis, hemoglobin is 13 and hematocrit is 38. No thrombocytopenia. Chemistry shows no electrolyte abnormality. Creatinine is 1.5, he is could be related to dehydration. Troponin is negative. EKGs did not show any ST elevations or dysrhythmias. CT scan shows no acute findings. After patient was placed in a room he received 1 L of fluids and meclizine, patient states he is still feels dizzy, like the room is spinning. Vital signs are stable. Patient will be admitted for intractable dizziness, and further evaluation. Spoke to mid-level for hospitalist team Karine PHAN.. Okay to admit patient. Differential diagnosis: Dehydration, vertigo, CVA, arrhythmia Rationale: Tests considered and ordered secondary to shared decision making include: labs, ECG and radiology Previous outside records reviewed: Old ER visits. Risk of complication and/or morbidity or mortality of patient management: None Medications-Per medication reconciliation Need for hospitalization: Patient does meet criteria for hospitalization. Need for emergency major/minor surgery: No There are no social concerns with this patient. Prescription drug management Prescriptions will include symptomatic care Patient's prior external medical records from other ER visits were reviewed by me as indicated. Prior testing and results from previous visits were reviewed. Prior tests were taken into account with medical decision making and resource utilization, independent historian/historians were used to obtain complete medical history. I independently interpreted the test that were performed, results were reviewed by me and considered findings on radiology if ordered. Medical management and examination interpretation discussions were had by me with other qualified healthcare professionals as indicated for the patient's care. DX & DISP Disposition: Inpatient Decision to Admit Date: Mar 02, 2025 Decision to Admit Time: 13:30 Departure Impression: Primary Impression: Dizziness Additional Impressions: EILEL (acute kidney injury), Dehydration Condition: Stable Referrals: RANDY CAMPA DO (PCP) Time of Disposition: 13:30 I have reviewed the case, and I agree with, Diagnosis and Plan HERO ROBBINS CNP Mar 02, 2025 12:20
[2025-03-02] MEDS: 0.9%NACL 1000ML 1,000 ML IV SCH (13:49)
[2025-03-02 13:51] LABS: APPEARANCE,URINE CLEAR (CLEAR); GLUCOSE, URINE (UA) NEGATIVE (NEGATIVE); LEUKOCYTE ESTERASE ,URINE NEGATIVE Leu/uL (NEGATIVE); NITRATE,URINE NEGATIVE (NEGATIVE); OCCULT BLOOD,URINE NEGATIVE (NEGATIVE)
[2025-03-02 14:00] LABS: ADD UA MICROSCOPIC NO
[2025-03-02 14:40] LABS: CREATINE KINASE, TOTAL 72.0 U/L (21-232)
[2025-03-02] MEDS ORDERED: MECL25TA39 PO (15:05)
[2025-03-02] MEDS ORDERED: CHOL500050 PO (15:05)
--- NOTE | 2025-03-02 15:07 | EKG ---
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
--- NOTE | 2025-03-02 15:11 | NUR ---
DCP:HOME Pt currently lives at home with his Tawny Robledo [phone]. Pt does not have any DME, home health, or provider services. Pt states that he is able to complete ADLs independently. PCP is Dr. Varsha Espinoza and uses [facility] for any RX needs. At [place] pt will want to go home and family can assist with transportation. Addendum: 03/02/25 at 1514 by SHANNON KENNEY SS Amended: Links added.
--- NOTE | 2025-03-02 15:23 | HP ---
[facility] HISTORY & PHYSICAL Date Patient Seen: Mar 02, 2025 Time of Visit: 15:23 Supervising Physician: Carl Brothers MD Primary Care Physician: Kenia Montiel DO Outpatient Specialists: [ ] Inpatient Consults: Dr Multani PROBLEM LIST: Sinus bradycardia POA Dizziness POA Normocytic anemia ELIEL Hyperglycemia Dementia Hypercholesteremia Essential hypertension Hypothyroidism HPI: Designating 1-year-old male with past medical history of dementia, hypercholesteremia, vertigo, hypertension, hypothyroidism and type 2 diabetes mellitus who presented to the ED with complaints of marginal/low blood pressure and dizziness. In ED H&H 13.2/38.6 glucose 189 mg/dL otherwise laboratory unremarkable. CT of the head unremarkable. Assessment patient is awake alert and oriented x3. With the bedside reports she was concern due to patient's heart rate in the 40s and blood pressure slightly low she reports systolic blood pressure in the 100s and apparently this is abnormal for him. Zosyn patient's blood pressure is 153/59 heart rate of 51 respiratory rate of 13 saturating 100% on room air and afebrile. We will keep patient under observation and consult Cardiology to evaluate for bradycardia with possible symptoms of dizziness. Dizziness workup will be done. PAST MEDICAL HX: see above PAST SURGICAL HX: noncontributory SOCIAL HISTORY: No tobacco, ETOH, or illicit drug use Coded Allergies: No Known Allergies (Unverified Allergy, 11/14/11) REVIEW OF SYSTEMS: 12 point ROS reviewed with patient. Pertinent positives mentioned above. Otherwise negative. PHYSICAL EXAM: GENERAL: alert, weak, awake oriented x 2-3, forgetful HEENT: EOMI, Sclera non icteric, moist mucosa NECK: Supple, no JVD, trachea midline LUNGS: Clear breath sounds bilaterally. No wheezes HEART: Regular rate and rhythm. Normal S1 and S2, without murmurs ABD: Abdomen soft, nontender. Bowel sounds present EXT: No clubbing cyanosis or edema NEURO: Alert and oriented to person, follows commands Vital Signs (last 8hr) Date Time Temp Pulse Resp B/P (MAP) Pulse Ox O2 Delivery O2 Flow Rate FiO2 03/02/25 13:44 97.0 51 13 153/59 100 Room Air* 0 21 03/02/25 11:54 97.0 59 13 139/72 97 Room Air* 0 21 03/02/25 10:40 97.9 68 16 104/54 98 Room Air 0 LABS: Hematology Labs: Test 03/02/25 11:17 Range/Units White Blood Count 7.7 4.8-10.8 K/uL Red Blood Count 4.18 L 4.50-6.20 MIL/uL Hemoglobin 13.2 L 14.0-18.0 g/dL Hematocrit 38.6 L 42-54 % Mean Corpuscular Volume 92.3 79-99 fL Mean Corpuscular Hemoglobin 31.6 27.0-33.0 pg Mean Corpuscular Hemoglobin Concent 34.2 32.0-36.0 g/dL Red Cell Distribution Width 13.7 11.0-15.5 % Platelet Count 175 130-400 K/uL Mean Platelet Volume 10.4 7.5-10.5 fL Immature Granulocyte % (Auto) 0.4 0-1 % Neutrophils (%) (Auto) 70.9 40.0-77.0 % Lymphocytes (%) (Auto) 18.5 L 21.0-51.0 % Monocytes (%) (Auto) 7.1 3.0-13.0 % Eosinophils (%) (Auto) 2.6 0.0-8.0 % Basophils (%) (Auto) 0.5 0.0-5.0 % Neutrophils # (Auto) 5.5 1.8-7.7 K/uL Lymphocytes # (Auto) 1.4 1.0-4.8 K/uL Monocytes # (Auto) 0.6 0.1-1.0 K/uL Eosinophils # (Auto) 0.20 0.00-0.70 K/uL Basophils # (Auto) 0.04 0.00-0.20 K/uL Absolute Immature Granulocyte (auto 0.03 0-1 K/uL Nucleated Red Blood Cells 0.0 0.0-0.19 % Chemistry Labs: Test 03/02/25 14:07 03/02/25 11:17 Range/Units Total Creatine Kinase 72 21-232 U/L Troponin I High Sensitivity 6.9 4-75 ng/L Thyroid Stimulating Hormone (TSH) 2.20 0.36-3.74 uIU/mL Sodium Level 141 136-145 mmol/L Potassium Level 4.6 3.5-5.1 mmol/L Chloride Level 104 101-111 mmol/L Carbon Dioxide Level 30 21-32 mmol/L Blood Urea Nitrogen 18 7-18 mg/dL Creatinine 1.5 H 0.5-1.3 mg/dL Glomerular Filtration Rate Calc 46 >90 mL/min Random Glucose 189 H 70-105 mg/dL Total Calcium 8.9 8.5-10.1 mg/dL DIAGNOSTICS / RADIOLOGY RESULTS: [ ] PLAN [facility] vital signs Carotid ultrasound CT of the head negative for intracranial bleed Cardiac monitoring Cardiac enzymes TSH CBC, CMP in a.m. Cardiology consult for bradycardia I went to the patient's medications did not see any beta blockers calcium channel blockers or clonidine that may be contributing to bradycardia. No calcium channel blockers no beta-blockers and no clonidine. NEURO: Minimize central acting medications as possible. Maintain fall precautions, adequate lighting during the day PULMONARY: Supplemental 02 as needed. Maintain aspiration precautions at all times CARDIOVASCULAR: Follow hemodynamics. Vital signs per facility protocol GI & NUTRITION: Continue with nutritional support. Continue stool softeners and laxatives as needed. KIDNEYS & ELECTROLYTES: Strict monitoring of intake, output and overall fluid balance. Avoid nephrotoxic medications to the extent possible. Medications to be dosed according to renal function. Monitor electrolytes and replace as needed ENDOCRINE: Maintain blood glucose between 100-180 at all times. Hypoglycemia protocol in place INFECTIOUS DISEASE: Trend temperature, WBC and procalcitonin level Follow cultures, deescalate antibiotics as soon as possible. Panculture if new onset fever ONCOLOGY/HEMATOLOGY/COAGULATION: Monitor for s/s of bleeding Monitor hemoglobin, coagulation studies as needed SKIN: Pressure ulcer prevention per facility protocol Specialty mattress ORTHO/REHAB: Continue PT/OT Prophylaxis: Continue GI and DVT prophylaxis Code Status: Full Resuscitation Disposition: TBD Other: ATTESTATION BY PHYSICIAN I have evaluated the patient chart, medical records, and spoke with appropriate staff. I reviewed the documentation, medical decision making, and treatment plan as noted by the mid-level provider above. I agree with the findings and plan of care. Carl Brothers MD, [facility] Mar 02, 2025 15:23
--- NOTE | 2025-03-02 16:08 | CONS ---
Cardiology Consult Note Attending Business Services Representative: Dr. Benedict Whitlock Primary Business Services Representative: Dr. Ranjeet Multani Consulting Physician: Nazia Date of Service: 03/02/2025 Reason for Consult: Concern for symptomatic bradycardia HPI: This is an 79y/o male with a past medical history of HTN, HLP, DM2, dementia, vertigo, CAD s/p PCI with BMS placement ([employer] vision 3.0x12 mm) to the OM2 done on 02/23/2010, normal Lexiscan stress test done on 10/02/2024, normal LV systolic function (LVEF: 60-65% by echo done 11/11/2024), and PAD s/p balloon angioplasty to the right JOSEPHINE done on 09/16/2020, s/p balloon angioplasty to the left BLUEPRINT TRACER done on 11/11/2024 who presents with dizziness of 1 day in duration. The symptoms began spontaneously and over the ensuing timeframe were constant, but stable. The symptoms developed while the patient was sitting at the dining table and were described as the room spinning. The symptoms lasted 5-10 minutes, were not exacerbated by anything, and resolved without any specific treatment. Associated symptoms include dizziness and flushed sensation. Pertinent negatives include headache, syncope, chest pain, chest pressure, palpitations, shortness of breath, PND, orthopnea, abdominal pain, nausea, vomiting, weight gain, lower extremity swelling, fever, or chills. The patient's progression of symptoms prompted his to bring him to the ED for further evaluation and treatment. While in the ED, telemetry monitoring identified HR's in the 50's bpm range. Cardiology was consulted for concern for symptomatic bradycardia. PMH: Listed above PSH: Listed above FH: Noncontributory SH: Denies alcohol, tobacco, or illicit drug use. Allergies: Coded Allergies: No Known Allergies (Unverified Allergy, 11/14/11) Review of systems: General: As per the HPI HEENT: Denies changes in vision, earache or sore throat. Neck: Denies pain or stiffness. Cardio: Denies chest pain, chest pressure, palpitations, or edema. Pulm: Denies SOB, coughing, or wheezing. GI: Denies abdominal pain, nausea, vomiting, diarrhea, or constipation. MSK: Denies decreased ROM or joint pain. Heme: Denies anemia, easy bruising, or bleeding. Neuro: As per the HPI Psyche: Denies anxiety, depression, or suicidal ideation. Physical Exam: Vital Signs Date Time Temp Pulse Resp B/P (MAP) Pulse Ox O2 Delivery O2 Flow Rate FiO2 03/02/25 13:44 97.0 51 13 153/59 100 Room Air* 0 21 General: Alert and oriented. NAD. HEENT: NC/AT. Oral mucosa is moist. Neck: No masses, JVD, or carotid bruits. Lungs: NRD. SCM. B/L CTA. No wheezing, rales or rhonchi. Cardio: Regular rate. Normal S1 and S2, +S4. No obvious murmurs, gallops, or rubs noted. Abdomen: Soft. NT. ND. Normal active bowel sounds x 4 quadrants. Extremities: Diminished throughout. No edema, clubbing, or cyanosis. Neuro: CN II-XII were grossly intact. No obvious focal deficits. Labs: Laboratory Tests Test 03/02/25 11:17 03/02/25 13:27 03/02/25 14:07 Range/Units White Blood Count 7.7 4.8-10.8 K/uL Red Blood Count 4.18 L 4.50-6.20 MIL/uL Hemoglobin 13.2 L 14.0-18.0 g/dL Hematocrit 38.6 L 42-54 % Mean Corpuscular Volume 92.3 79-99 fL Mean Corpuscular Hemoglobin 31.6 27.0-33.0 pg Mean Corpuscular Hemoglobin Concent 34.2 32.0-36.0 g/dL Red Cell Distribution Width 13.7 11.0-15.5 % Platelet Count 175 130-400 K/uL Mean Platelet Volume 10.4 7.5-10.5 fL Immature Granulocyte % (Auto) 0.4 0-1 % Neutrophils (%) (Auto) 70.9 40.0-77.0 % Lymphocytes (%) (Auto) 18.5 L 21.0-51.0 % Monocytes (%) (Auto) 7.1 3.0-13.0 % Eosinophils (%) (Auto) 2.6 0.0-8.0 % Basophils (%) (Auto) 0.5 0.0-5.0 % Neutrophils # (Auto) 5.5 1.8-7.7 K/uL Lymphocytes # (Auto) 1.4 1.0-4.8 K/uL Monocytes # (Auto) 0.6 0.1-1.0 K/uL Eosinophils # (Auto) 0.20 0.00-0.70 K/uL Basophils # (Auto) 0.04 0.00-0.20 K/uL Absolute Immature Granulocyte (auto 0.03 0-1 K/uL Nucleated Red Blood Cells 0.0 0.0-0.19 % Sodium Level 141 136-145 mmol/L Potassium Level 4.6 3.5-5.1 mmol/L Chloride Level 104 101-111 mmol/L Carbon Dioxide Level 30 21-32 mmol/L Blood Urea Nitrogen 18 7-18 mg/dL Creatinine 1.5 H 0.5-1.3 mg/dL Glomerular Filtration Rate Calc 46 >90 mL/min Random Glucose 189 H 70-105 mg/dL Total Calcium 8.9 8.5-10.1 mg/dL Troponin I High Sensitivity 7 6.9 4-75 ng/L Urine Color LIGHT-YELLOW YELLOW Urine Appearance CLEAR CLEAR Urine pH 6.5 5.0-8.0 Urine Specific [place] 1.006 1.001-1.031 Urine Protein NEGATIVE NEGATIVE mg/dL Urine Glucose (UA) NEGATIVE NEGATIVE mg/dL Urine Ketones NEGATIVE NEGATIVE mg/dL Urine Occult Blood NEGATIVE NEGATIVE Urine Nitrate NEGATIVE NEGATIVE Urine Bilirubin NEGATIVE NEGATIVE mg/dL Urine Urobilinogen 0.2 0.2-1.0 mg/dL Urine Leukocyte Esterase NEGATIVE NEGATIVE Ayad/uL Total Creatine Kinase 72 21-232 U/L Thyroid Stimulating Hormone (TSH) 2.20 0.36-3.74 uIU/mL Assessment: -Dizziness, multifactorial -Vertigo -Orthostatic dizziness -HTN -Asymptomatic sinus bradycardia -HLP -DM2 -Dementia -CAD s/p PCI with BMS placement ([employer] vision 3.0x12 mm) to the OM2 done on 02/23/2010 -Normal Lexiscan stress test done on 10/02/2024 -Normal LV systolic function (LVEF: 60-65% by echo done 11/11/2024) -PAD s/p balloon angioplasty to the right JOSEPHINE done on 09/16/2020, s/p balloon angioplasty to the left BLUEPRINT TRACER done on 11/11/2024 Plan: 1. Multifactorial dizziness -Orthostatic BP 03/02/2025: Layin/60 mmHg > Sittin/59 mmHg > Standin/61 mmHg, with symptoms of dizziness with position change -The patient's dizziness is thought to be multifactorial and secondary to a combination of vertigo and orthostatic dizziness. -In order to address the patient's orthostatic dizziness, we will decrease losartan from 50 mg BID to 25 mg BID. -In addition, we recommend that he continue on meclizine 25 mg BID PRN vertigo. -Please repeat orthostatic vital signs in the AM. 2. Asymptomatic sinus bradycardia -ECG 03/02/2025: Sinus rhythm, QTc: 438 ms, HR: 56 bpm -Bedside telemetry monitoring: Sinus bradycardia-Sinus rhythm, HR range: 49-68 bpm -The patient HR is not thought to be a contributing factor behind his symptoms of dizziness, nor has his monitoring specialist identified any arrhythmia that would warrant PPM implantation. -We recommend avoiding AV kindra blocking agents in order to prevent symptomatic bradycardia from developing. -Please keep the patient on continuous telemetry monitoring and maintain electrolytes within normal parameters. Thank you for this interesting consult and allowing us to participate in the care of you patient. Dr. Ranjeet Multani will assume care of the patient in the AM. This case was discussed with my Supervising Physician, Dr. Benedict Whitlock, and the above-mentioned plan was formulated and agreed upon. -Consult Note written by Rafa Kraus, MSN, WELFARE CASE WORKER, AGACNP-[facility] Mar 02, 2025 16:08
[2025-03-02 16:13] LABS: AMPHET/METH SCREEN,URINE NEGATIVE (NEGATIVE); BARBITURATE SCREEN, URINE NEGATIVE (NEGATIVE); CANNABINOID SCREEN,URINE NEGATIVE (NEGATIVE); COCAINE SCREEN,URINE NEGATIVE (NEGATIVE)
--- NOTE | 2025-03-02 19:58 | NUR ---
REPORT GIVEN TO NURSE JANIS
[2025-03-02 20:10] VITALS: BP 161/56; PULSE 52; RESP 18; TEMP 98.2
[2025-03-02 21:40] LABS: CREATINE KINASE, TOTAL 72.0 U/L (21-232)
--- NOTE | 2025-03-02 22:20 | HMCIMG ---
EXAM: CAROTID ARTERY DUPLEX ULTRASOUND, BILATERAL Technique: Grayscale, color Doppler, and spectral Doppler ultrasound of the carotid arteries was performed with angle correction where feasible, interrogating the common carotid arteries, carotid bulbs, internal carotid arteries, external carotid arteries, and vertebral arteries bilaterally. Technical limitations: None apparent. Clinical Information: Rule out carotid stenosis. Comparison: None. Findings: Right common carotid artery: Peak systolic velocity measures 74 cm/s with normal antegrade waveform. Right carotid bulb and internal carotid artery: Calcified plaque is present. Peak systolic velocity in the proximal to mid internal carotid artery measures 100 cm/s. Internal carotid artery to common carotid artery peak systolic velocity ratio is 1.3. End-diastolic flow is antegrade on the waveforms provided. No focal spectral broadening or turbulence is demonstrated. Right external carotid artery: Peak systolic velocity measures 80 cm/s with expected high-resistance waveform. Right vertebral artery: Peak systolic velocity measures 53 cm/s with antegrade flow. Left common carotid artery: Peak systolic velocity measures 71 cm/s with normal antegrade waveform. Left carotid bulb and internal carotid artery: Mixed calcified and soft plaque is present. Peak systolic velocity in the proximal to mid internal carotid artery measures 125 cm/s. Internal carotid artery to common carotid artery peak systolic velocity ratio is 1.8. End-diastolic flow is antegrade on the waveforms provided. No focal spectral broadening or turbulence is demonstrated. Left external carotid artery: Peak systolic velocity measures 69 cm/s with expected high-resistance waveform. Left vertebral artery: Peak systolic velocity measures 50 cm/s with antegrade flow. Impression: * Atherosclerotic plaque at the carotid bulbs and proximal internal carotid arteries bilaterally (calcified on the right; mixed calcified and soft on the left). Duplex parameters???right internal carotid artery peak systolic velocity 100 cm/s with internal carotid artery to common carotid artery ratio 1.3, and left internal carotid artery peak systolic velocity 125 cm/s with ratio 1.8???are most consistent with less than 50 percent stenosis of the internal carotid arteries bilaterally. * Antegrade vertebral artery flow bilaterally. * No duplex evidence of hemodynamically significant carotid stenosis on this examination. /[place]
[2025-03-03] VITALS (8 sets, daily range): BP systolic 130–156; BP diastolic 44–72; PULSE 53–84; RESP 17–18; TEMP 97.1–97.8; O2SAT 94
--- NOTE | 2025-03-03 02:19 | NUR ---
MEDICATIONS Patient states he does not have his home medications with him. Patient states he will have a family member bring in his medications in the morning.
[2025-03-03 06:18] LABS: IMMATURE GRANULOCYTE ABSOLUTE 0.03 K/uL (0-1); NUCLEATED RED BLOOD CELLS 0.0 % (0.0-0.19); PLATELET COUNT (AUTO) 155 K/uL (130-400); RED BLOOD CELL COUNT(AUTO) 3.50 MIL/uL (4.50-6.20); RED CELL DISTRIBUTION WIDTH 14.0 % (11.0-15.5); WHITE BLOOD COUNT (AUTO) 5.8 K/uL (4.8-10.8)
[2025-03-03 06:38] LABS: CREATINE KINASE, TOTAL 63.0 U/L (21-232)
[2025-03-03 06:40] LABS: ASPARTATE AMINOTRANSFERASE 15 U/L (10-37); CREATININE 1.4 mg/dL (0.5-1.3); GLOMERULAR FILTR. RATE CALC 50 mL/min (>90); GLUCOSE,RANDOM 95 mg/dL (70-105); PHOSPHORUS 2.9 mg/dL (2.5-4.9); SODIUM SERUM 146 mmol/L (136-145); TOTAL PROTEIN, SERUM 5.8 g/dL (6.0-8.3); UREA NITROGEN, BLOOD 16 mg/dL (7-18)
--- NOTE | 2025-03-03 07:58 | PN ---
-Dizziness, multifactorial -Vertigo -Orthostatic dizziness -HTN -Asymptomatic sinus bradycardia -HLP -DM2 -Dementia -CAD s/p PCI with BMS placement ([employer] vision 3.0x12 mm) to the OM2 done on 02/23/2010 -Normal Lexiscan stress test done on 10/02/2024 -Normal LV systolic function (LVEF: 60-65% by echo done 11/11/2024) -PAD s/p balloon angioplasty to the right JOSEPHINE done on 09/16/2020, s/p balloon angioplasty to the left IVORY CARVER done on 11/11/2024 Patient reports spinning sensation, no lightheadedness or visual changes or presyncope or syncope. Symptoms completely cleared with meclizine. Patient feels normal this morning. In the night his lowest heart rate was 47 with occasional premature ventricular beats. He was admitted with heart rate in the 50s with vertigo, of concern by the ER physician that he may have symptomatic bradycardia. Physical exam shows the patient to be resting comfortably with no JVD, no rales, no rhonchi, nonlabored respiration, normal S1 and S2, no edema. Patient is oriented to person/ place and remembers me. The patient symptoms are vertigo, which is a recurrent problem, and his mild bradycardia is irrelevant to his symptoms or his current treatment. Patient can be discharged. Already has follow up appointment in my office; current admission is for a noncardiac problem and appropriate follow up would be with his primary care physician. Vitals/Labs Vital Signs Date Time Temp Pulse Resp B/P (MAP) Pulse Ox O2 Delivery O2 Flow Rate FiO2 03/03/25 07:50 97.5 53 18 130/55 94 Room Air 03/02/25 21:30 0 21 Laboratory Tests 03/02/25 11:17 03/03/25 06:10 Medications Current Medications Sodium Chloride 1,000 ml @ 1,000 mls/hr Q1H STAT IV Last administered on 03/02/25at 12:14; Start 03/02/25 at 10:48; Stop 03/02/25 at 11:47; Status DC Meclizine HCl 25 mg ONCE ONCE PO Last administered on 03/02/25at 12:14; Start 03/02/25 at 11:00; Stop 03/02/25 at 11:01; Status DC Ondansetron HCl 4 mg Q6H PRN IV; Start 03/02/25 at 13:30; Stop 04/01/25 at 13:29 Acetaminophen 650 mg Q6H PRN PO; Start 03/02/25 at 13:30; Stop 04/01/25 at 13:29 Enoxaparin Sodium 40 mg DAILY SQ; Start 03/03/25 at 09:00; Stop 04/02/25 at 08:59 Sodium Chloride 1,000 ml @ 50 mls/hr Q20H IV Last administered on 03/02/25at 13:49; Start 03/02/25 at 13:30; Stop 03/03/25 at 13:29 Losartan Potassium 25 mg BID PO Last administered on 03/02/25at 21:51; Start 03/02/25 at 21:00; Stop 04/01/25 at 20:59 MING SEWELL MD Mar 03, 2025 07:58
[2025-03-03] MEDS: ENOXAPARIN SODIUM 40 MG/0.4 ML SYRINGE SQ SCH (09:00)
--- NOTE | 2025-03-03 12:47 | DS ---
[facility] DISCHARGE SUMMARY Date Patient Seen: Mar 03, 2025 Time of Visit: 12:47 Supervising Physician: Dr. Carl Brothers Primary Care Physician: Kenia Montiel DO Inpatient Consults: Dr. Multani PROBLEM LIST: Sinus bradycardia, asymptomatic, POA Vertigo, chronic Normocytic anemia ELIEL on CKD stage II, stable Hyperglycemia Dementia Hypercholesteremia Essential hypertension Hypothyroidism Octogenarian HOSPITAL COURSE: 79y/o male with a past medical history of HTN, HLP, DM2, dementia, vertigo, CAD s/p PCI with BMS placement ([employer] vision 3.0x12 mm) to the OM2 done on 02/23/2010, normal Lexiscan stress test done on 10/02/2024, normal LV systolic function (LVEF: 60-65% by echo done 11/11/2024), and PAD s/p balloon angioplasty to the right JOSEPHINE done on 09/16/2020, s/p balloon angioplasty to the left [employer] done on 11/11/2024 who presents with dizziness of 1 day in duration. The symptoms began spontaneously and over the ensuing timeframe were constant, but stable. The symptoms developed while the patient was sitting at the dining table and were described as the room spinning. The symptoms lasted 5-10 minutes, were not exacerbated by anything, and resolved without any specific treatment. Associated symptoms include dizziness and flushed sensation. Pertinent negatives include headache, syncope, chest pain, chest pressure, palpitations, shortness of breath, PND, orthopnea, abdominal pain, nausea, vomiting, weight gain, lower extremity swelling, fever, or chills. The patient's progression of symptoms prompted his to bring him to the ED for further evaluation and treatment. While in the ED, telemetry monitoring identified HR's in the 50's bpm range. Cardiology was consulted for concern for symptomatic bradycardia. Cardiology has evaluated patient and cleared patient for discharge. Today, patient is AAOX3. Currently ambulating in room. Denies any chest pain, dizziness, abdominal pain, nausea or vomiting. Orthostatic VS negative. Stable for discharge home. Advised to follow up with PCP and cardiology, verbalized understanding. Continued Medications: Aspirin (Aspirin) 81 Mg Tab.chew 81 MG PO HS, TAB.CHEW Cholecalciferol (Vitamin D3) (Vitamin D3) 1,250 Mcg (36341 Unit) Capsule 1 CAP PO QWEEK for 28 Days, #4 CAP 0 Refills Cyanocobalamin (Vitamin B-12) (B-12) 1,000 Mcg Tablet 1000 MCG PO BID, TAB Donepezil HCl (Donepezil HCl) 10 Mg Tablet 10 MG PO DAILY, TAB Ezetimibe (Ezetimibe) 10 Mg Tablet 10 MG PO DAILY, TAB Levothyroxine Sodium (Levothyroxine) 25 Mcg Capsule 25 MCG PO ACBKFST, CAP Losartan Potassium (Losartan Potassium) 50 Mg Tablet 50 MG PO BID, TAB Meclizine HCl (Medi-Meclizine) 25 Mg Tablet 25 MG PO HS, TAB Memantine HCl (Memantine HCl) 10 Mg Tablet 10 MG PO BID, TAB Pioglitazone HCl (Pioglitazone HCl) 15 Mg Tablet 15 MG PO DAILY, TAB Pravastatin Sodium (Pravastatin Sodium) 40 Mg Tablet 40 MG PO HS, TAB PHYSICAL EXAM: GENERAL: alert, weak, awake oriented x 2-3, forgetful HEENT: EOMI, Sclera non icteric, moist mucosa NECK: Supple, no JVD, trachea midline LUNGS: Clear breath sounds bilaterally. No wheezes HEART: Regular rate and rhythm. Normal S1 and S2, without murmurs ABD: Abdomen soft, nontender. Bowel sounds present EXT: No clubbing cyanosis or edema NEURO: AAOX3, follows commands FOLLOW-UP: Follow-up with PCP in 2-3 days With cardiology in one week RECOMMENDATIONS: See Discharge Instructions This case was seen and discussed with my supervising physician. 35 minutes spent on discharge process, including evaluation of the patient, discussion with nursing staff, medication reconciliation and follow-up appointments SHABANA NICE Mar 03, 2025 12:47
--- NOTE | 2025-03-03 17:53 | NUR ---
Patient DC prior to PT eval
== END 2025-03-03 13:37 | disposition home or self-care (01) ==
LOC: EDH 10:37 → UNDOADMOB 13:30 → EDHIP 13:30 → 4CH 20:10 → EDHIP 20:10 → UNDODISOB 03-03 13:37
PROVIDERS: ADMIT Internal Medicine Critical Care Medicine; ATTEND Internal Medicine Critical Care Medicine
DX: R00.1 Bradycardia, unspecified (principal); R42 Dizziness and giddiness; E11.22 Type 2 diabetes mellitus with diabetic chronic kidney disease; I12.9 Hypertensive chronic kidney disease with stage 1 through stage 4 chronic kidney disease, or unspecified chronic kidney disease; N18.2 Chronic kidney disease, stage 2 (mild); N17.9 Acute kidney failure, unspecified; D63.1 Anemia in chronic kidney disease; E03.9 Hypothyroidism, unspecified; E11.65 Type 2 diabetes mellitus with hyperglycemia; E78.00 Pure hypercholesterolemia, unspecified; E86.0 Dehydration; F03.90 Unspecified dementia, unspecified severity, without behavioral disturbance, psychotic disturbance, mood disturbance, and anxiety; I25.10 Atherosclerotic heart disease of native coronary artery without angina pectoris; Z95.5 Presence of coronary angioplasty implant and graft; Z79.899 Other long term (current) drug therapy
CPT/HCPCS: 96360; 96361 ×2; 99284; 84443; 82550 ×3; 84484 ×4; 80048; 80305; 85025 ×2; 81003; 36415 ×2; 70450; 93880; 93005 ×2; 83735; 84100; 80053; 82140; G0378 ×24; J1650